=== PATIENT | male | born 1950 | race Caucasian/White ===

== ENCOUNTER 2023-02-03 14:39 | Outpatient (OUT) | payer MEDICARE, SELFPAY ==
[2023-02-03 15:37] LABS: Prostate Specific Antigen Dx <0.13 ng/mL (<=4.00)
--- OUTSIDE RECORDS SUMMARY | 2023-03-16 15:51 | XMS_ITS | CCD ---
Author Name Unknown Address [address] [place] [address] Organization [facility] Care Team Providers Care Helmet Coverer Name Role Phone NINO VALENTIN Primary Care Physician [phone] COMPA CAZARES, DR ATILIO Bermudez Attending Unavailhardy READ JR, DR ATILIO Bermudez Consulting Unavailhardy READ JR, DR ATILIO Bermudez Admitting UnavailNINO Perez Primary Care Unavailable Roxanne Haddad Attending Unavailable JUDITH NORTON Attending Unavailable JUDITH NORTON Attending Unavailable JUDITH NORTON Admitting Unavailable DENIZ FINNEY Attending Unavailable DAHLIA VALENTIN Referring Unavailable DAHLIA VALENTIN Referring Unavailable DAHLIA VALENTIN Attending Unavailable DO Deniz Finney Attending Provider DO Nino Valentin Primary Care Provider Nino Valentin DO Primary Care Provid er Deniz Finney DO Unavailable DEVIN GONZALEZ Attending Unavailable NINO VALENTIN Primary Care DEVIN Ordaz Referring Unavailable Nino Valentin DO Primary Care Provid er Dahlia Valentin Unavailable NINO VALENTIN Referring NINO Sabillon Primary Care ALEX Matt Attending Unavailable NINO VALENTIN Primary Care Cornel Ramirez Admitting Unavailable Cornel Chowdary Attending Unavailable Nino Valentin [facility] Care Unavailable Nino Valentin Primary Care Unavailable Deniz Finney Admitting Unavailable Deniz Finney Attending Unavailable Darryl Escalera Admitting Unavail able Darryl Escalera Attending Unavail able Nino Valentin Primary Care Unavailable Allergies Allergy Classification Reported Allergen(s) Allergy Type Date of Onset Reaction(s) Facility (2 sources) Amoxicillin; Translations: [amoxicillin] Drug Allergy 3 [facility] (2 sources) Clavulanate; Translations: [clavulanic acid] Drug Allergy 3 [facility] (3 sources) meloxicam; Translations: [MELOXICAM] Drug Allergy 2 Rash, Other: See Comments [facility] (2 sources) traMADol; Translations: [TRAMADOL] Drug Allergy 3 [facility] Work Phone: Medications Current Medications Medication Drug Class(es) Dates Sig (Normalized) Sig (Original) aspirin 81 mg chewable tablet (3 sources) Platelet Aggregation Inhibitor, Nonsteroidal Anti-inflammatory Drug Start: 02-26-2023 take 1 tablet by mouth once daily Aspirin (Baby Aspirin) 81 mg Tablet,Chewable Active 81 MG PO Daily February 26, 2023 12:00am aspirin, enteric coated (ASPIRIN, ENTERIC COATED) 81 mg EC tablet Take 81 mg by mouth. 0 Active Comment on above: Take 81 mg by mouth. glipiZIDE 5 mg oral tablet (7 sources) Sulfonylurea Start: 01-08-2023 take 5 mg by mouth once daily at bedtime Glipizide Active 5 MG PO Daily at bedtime February 26, 2023 12:00am Start: 10-25-2018 take 1 tablet by keri th once daily glipiZIDE 10 mg Tab 10 mg = 1 tab(s), Oral, Daily Start Date: 10/25/18 Status: Ordered Comment on above: Take 1 tablet by keri th every afternoon. Insulin Degludec (Tresiba Flextouch U-100) 100 unit/mL (3 mL) insulin pen (1 source) Start: 02-26-2023 Insulin Deglud ec (Tresiba Flextouch U-100) 100 unit/mL (3 mL) insulin pen Active 20 UNIT SUBCUT Every morning February 26, 2023 12:00am metFORMIN hydrochloride 1000 mg oral tablet (7 sources) Biguanide Start: 01-25-2023 take 1000 mg by mouth twice daily Metformin Active 1000 MG PO Twice daily February 26, 2023 12:00am Start: 12-28-2022 take 1 tablet by keri th every twelve hours metFORMIN (GLUCOPHAGE) 1,000 mg tablet Take 1 tablet by mouth every 12 hours. 0 12/28/2022 Active Start: 10-25-2018 take 2 tablets by mo uth twice daily metformin 500 mg Tab 1,000 mg = 2 tab(s), Oral, BID Start Date: 10/25/18 Status: Ordered Comment on above: Take 1 tablet by keri th every 12 hours. Multivitamin preparation (1 source) Start: 02-26-2023 take 1 tablet by mouth once daily Multivitamin Active 1 TAB PO Daily February 26, 2023 12:00am multivitamin with minerals tablet (1 source) take 1 tablet by mouth once daily multivitamin with minerals tablet Take 1 tablet by mouth once daily. 0 Active triamcinolone acetonide 1 mg/ml topical cream (2 sources) Corticosteroid Start: 02-09-2023 Triamcinolone Acetonide Active 1 APPLIC TOPICAL Twice daily February 26, 2023 12:00am Completed/Discontinued Medications Medication Drug Class(es) Dates Sig (Normalized) Sig (Original) atorvastatin 20 mg oral tablet (4 sources) HMG-CoA Reductase Inhibitor Start: 01-08-2023 End: 01-08-2024 take 1 tablet by mouth in the morning atorvastatin (LIPITOR) 20 mg tablet Take 1 tablet (20 mg) by mouth in the morning. 0 01/08/2023 Active Start: 10-24-2019 take 1 tablet by keri th once daily atorvastatin 20 mg Tab 20 mg = 1 tab(s), Oral, Daily, # 30 tab(s), Refills(s) 0 Start Date: 10/24/19 Status: Ordered Comment on above: Take 1 tablet (20 mg ) by mouth in the morning. empagliflozin 10 mg oral tablet (4 sources) Sodium-Glucose Cotransporter 2 Inhibitor Start: 01-25-2023 empagliflozin (JARDIANCE) 10 mg tablet Take 10 mg by mouth. 0 01/25/2023 Active Start: 10-25-2018 Jardiance 25 m g oral tablet 12.5 mg = 0.5 tab(s), Oral, qAM Start Date: 10/25/18 Status: Ordered Comment on above: Take 10 mg by mouth. 3 ml insulin degludec 100 unt/ml pen injector (2 sources) Insulin Analog Start: 02-09-2023 inject 20 [IU] by subcutaneous injection in the morning TRESIBA FLEXTOUCH U-100 100 unit/mL (3 mL) injection pen INJECT 20 UNITS SUBCUTANEOUSLY IN THE MORNING 0 02/09/2023 Active Start: 02-09-2023 insulin deglud ec (Tresiba FlexTouch U-100) 100 unit/mL (3 mL) injection Inject 20 Units under the skin once daily. 0 02/09/2023 Active Comment on above: INJECT 20 UNITS SUBC UTANEOUSLY IN THE MORNING therapeutic multivitamin-min erals (THERA-M PLUS) 9 mg iron-400 mcg tablet (1 source) therapeutic mult ivitamin-minerals (THERA-M PLUS) 9 mg iron-400 mcg tablet Take 1 tablet by mouth once daily. 0 Active Comment on above: Take 1 tablet by keri th once daily. Problems Active Problems Problem Classification Problem Date Documented Date Episodic/Chronic Abdominal pain (8 sources) Abdominal pain; Translations: [Abdominal tenderness] 11-30-2019 Episodic Cancer of prostate (14 sources) History of malignant neoplasm of prostate; Translations: [Personal history of malignant neoplasm of prostate] Onset: 2 10-24-2019 Episodic Conduction disorders (5 sources) Complete atrioventricular block; Translations: [Atrioventricular block, complete] Onset: 3 03-04-2023 Chronic Coronary atherosclerosis and other heart disease (8 sources) Preinfarction syndrome; Translations: [Unstable angina] Onset: 3 03-04-2023 Chronic Diabetes mellitus with complications (4 sources) Type 2 diabetes mellitus; Translations: [Type 2 diabetes mellitus with other circulatory complications] Onset: 3 03-04-2023 Chronic Diabetes mellitus without complication (5 sources) Diabetes mellitus; Translations: [Type 2 diabetes mellitus without complications] Onset: 3 10-25-2018 Chronic Diseases of white blood cells (2 sources) Lymphocytosis; Translations: [Lymphocytosis (symptomatic)] Onset: 3 03-08-2023 Chronic Disorders of lipid metabolism (5 sources) Mixed hyperlipidemia; Translations: [Mixed hyperlipidemia] Onset: 6 03-04-2023 Chronic Genitourinary symptoms and ill-defined conditions (5 sources) Incontinence without sensory awareness; Translations: [Incontinence without sensory awareness] Onset: 2 12-31-2020 Chronic Genitourinary symptoms and ill-defined conditions (17 sources) Increased frequency of urination; Translations: [Nocturia] Onset: 2 09-14-2018 Episodic Leukemias (1 source) Chronic lymphoid leukemia, disease; Translations: [Chronic lymphocytic leukemia of B-cell type not having achieved remission] 03-08-2023 Chronic Lymphadenitis (4 sources) Localized enlarged lymph nodes; Translations: [Localized enlarged lymph nodes] Onset: 3 Episodic Malaise and fatigue (4 sources) Fatigue; Translations: [Other fatigue] Onset: 3 03-04-2023 Episodic Nonspecific chest pain (2 sources) Chest discomfort; Translations: [Other chest pain] Onset: 3 Resolved: 3 03-04-2023 Episodic Other diseases of bladder and urethra (6 sources) Traumatic membranous urethral stricture; 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] Onset: 2 11-30-2019 Episodic Other male genital disorders (4 sources) Erectile dysfunction following radical prostatectomy 10-25-2018 Chronic Other nutritional; endocrine; and metabolic disorders (2 sources) Obesity; Translations: [Obesity, unspecified] Onset: 3 03-04-2023 Chronic Other nutritional; endocrine; and metabolic disorders (2 sources) Obesity, unspecified; Translations: [Obesity, unspecified] Onset: 3 Chronic Other nutritional; endocrine; and metabolic disorders (2 sources) Body mass index (BMI) 30.0-30.9, adult; Translations: [Body mass index (BMI) 30.0-30.9, adult] Onset: 3 Chronic Other screening for suspected conditions (not mental disorders or infectious disease) (4 sources) Electrocardiogram abnormal; Translations: [Abnormal electrocardiogram [ECG] [EKG]] Onset: 3 03-04-2023 Episodic Unclassified (1 source) Encounter for preprocedural laboratory examination; Translations: [Encounter for preprocedural laboratory examination] Onset: 3 Past or Other Problems Problem Classification Problem Date Documented Da te Episodic/Chronic Cardiac dysrhythmias (1 source) Sick sinus syndrome; Translations: [Sick sinus syndrome] Onset: 03-04-2023 Resolved: 03-04-2023 03-04-2023 Chronic Other non-traumatic joint disorders (4 sources) Swelling of knee joint Resolved: 09-14-2018 09-14-2018 Episodic Unclassified (1 source) Onset: 03-04-2023 03-04-2023 Results Test Name Value Interpretation Reference Range Facil ity XR chest 2V*on 03-12-2023 XR chest 2V* [facility] [place] [address] [place] [address] XRay Report Signed Patient: Malik Ladd MR#: [id number] : 1950 Acct:[id number] Age/Sex: 72 / M ADM Date: 03/11/23 Loc: Room: [address] [place] [address] Type: [facility] Attending Dr: Darryl Escalera MD Copies to: Darryl Escalera MD Ordering Provider: Darryl Escalera MD Date of Service: 03/12/23 XR/XR chest 2V*: Rule out pneumothorax on only new implants cases in am Chest 2 views CLINICAL HISTORY: Post pacemaker. COMPARISON: Chest 03/11/2023 FINDINGS: Dual-lead pacemaker device without radiographic complication. Heart appears normal in size. Lungs are clear. No pneumothorax. No free air. XR/XR chest 2V* IMPRESSION: NO ACUTE FINDINGS. Impression dictated by: Fly Diaz Jr., D.OAlannah03/12/2023 8:23 AM Dictation Location: [place] [address] Transcribed By: [facility] 03/12/23822 Dictated By: Fly Diaz Jr, DO 03/12/23821 Signed By: 03/12/23822 Normal [facility] Basic Metabolic Panelon 02-26 Anion gap [Moles/Vol] 12.1 mmol/L Normal 6.0-15.0 [facility] Comment on above: Performed By: #### P TT, PT, BMP, SCAN CBC #### [facility] [address] [place] [address] [place] Calcium [Mass/Vol] 8.6 mg/dL Normal 8.6-10.3 [facility] Comment on above: Performed By: #### P TT, PT, BMP, SCAN CBC #### [facility] [address] [place] [address] [place] Chloride [Moles/Vol] 106 mmol/L Normal 98-107 [facility] Comment on above: Performed By: #### P TT, PT, BMP, SCAN CBC #### [facility] [address] [place] [address] [place] CO2 [Moles/Vol] 24.3 mmol/L Normal 21.0-31.0 [facility] Comment on above: Performed By: #### P TT, PT, BMP, SCAN CBC #### [facility] [address] [place] [address] [place] Creatinine [Mass/Vol] 0.72 mg/dL Normal 0.70-1.30 [facility] Comment on above: Performed By: #### P TT, PT, BMP, SCAN CBC #### [facility] [address] [place] [address] [place] Creatinine Clr Calc Pharmacy 96.67 [facility] Comment on above: Result Comment: PERF ORMED BY: [place] [address] PATHOLOGIST PEDAL ASSEMBLER ZEV PARRA M.D. Performed By: #### P TT, PT, BMP, SCAN CBC #### [facility] [address] [place] [address] [place] GFR/1.73 sq M.predicted MDRD (S/P/Bld) [Vol rate/Area] mL/min/{1.73_m2} [facility] Comment on above: Performed By: #### P TT, PT, BMP, SCAN CBC #### [facility] [address] [place] [address] [place] Glucose [Mass/Vol] 278 mg/dL High 70-100 [facility] Comment on above: Result Comment: [place] om Glucose Reference Range is dependent on time and content of last meal. Glucose of more than 200 mg/dL in a nonstressed, ambulatory subject supports the diagnosis of Diabetes Mellitus. ADA recommended reference range Performed By: #### P TT, PT, BMP, SCAN CBC #### [facility] [address] Potassium [Moles/Vol] 4.4 mmol/L Normal 3.5-5.1 [facility] Comment on above: Performed By: #### P TT, PT, BMP, SCAN CBC #### [facility] [address] Sodium [Moles/Vol] 138 mmol/L Normal 136-145 [facility] Comment on above: Performed By: #### P TT, PT, BMP, SCAN CBC #### [facility] [address] Urea nitrogen [Mass/Vol] 25 mg/dL Normal 7-25 [facility] Comment on above: Performed By: #### P TT, PT, BMP, SCAN CBC #### [facility] [address] ECG 12 lead ECG 03-11-2023 ECG 12 lead ECG [facility] [place] [address] [place] [address] Electrocardiograph Report Signed Patient: Malik Ladd MR#: [id number] : 1950 Acct:[id number] Age/Sex: 72 / M ADM Date: 03/11/23 Loc: Room: [address] [place] [address] Type: REG [facility] Attending Dr: Darryl Escalera MD Ordering Provider: Darryl Escalera MD Date of Service: 03/11/23 ECG/ECG 12 lead ECG: pre-op Copies to: Test Reason : Blood Pressure : / mmHG Vent. Rate : 054 BPM Atrial Rate : 054 BPM P-R Int : 528 ms QRS Dur : 080 ms QT Int : 438 ms P-R-T Axes : 080 021 060 degrees QTc Int : 415 ms Sinus bradycardia with marked sinus arrhythmia with 1st degree AV block Otherwise normal ECG When compared with ECG of 08-MAR-2023 11:04, No significant change was found Confirmed by EVERTON HONG MD ([id number]) on 03/11/2023 9:45:13 PM Referred By: Electronically Signed By:EVERTON HONG MD Transcribed By: MUS Signed By Everton Hong MD 3226 Normal [facility] Glucose Poct Glucometerson 1 05-12-2022 Glucose [Mass/Vol] 188 mg/dL Normal [facility] Comment on above: Result Comment: [place] om Glucose Reference Range is dependent on time and content of last meal. Glucose of more than 200 mg/dL in a nonstressed, ambulatory subject supports the diagnosis of Diabetes Mellitus. PERFORMED BY: [address] [address] PATHOLOGIST PEDAL ASSEMBLER ZEV PARRA M.D. Performed By: #### G LULS ####Point of Care testing, Glucose [Mass/Vol] 242 mg/dL Normal [facility] Comment on above: Result Comment: [facility] Glucose Reference Range is dependent on time and content of last meal. Glucose of more than 200 mg/dL in a nonstressed, ambulatory subject supports the diagnosis of Diabetes Mellitus. PERFORMED BY: [address] [address] PATHOLOGIST PEDAL ASSEMBLER ZEV PARRA M.D. Performed By: #### G LULS ####Point of Care testing, Commemt1 Glu2: Cleaned Meter Normal [facility] Comment on above: Result Comment: PERF ORMED BY: [facility] [address] [place] [address] PATHOLOGIST PEDAL ASSEMBLER ZEV PARRA M.D. Performed By: #### G LULS #### Point of Care testing , Glucose [Mass/Vol] 272 mg/dL Normal [facility] Comment on above: Result Comment: [facility] Glucose Reference Range is dependent on time and content of last meal. Glucose of more than 200 mg/dL in a nonstressed, ambulatory subject supports the diagnosis of Diabetes Mellitus. Performed By: #### G LULS #### Point of Care testing , Partial Thromboplastin Timeo n 03-11-2023 aPTT Coag (Bld) [Time] 27.1 s Normal 25.1-36.5 [facility] Comment on above: Result Comment: A he matocrit value greater than 55% may lead to inaccurate results in coagulation testing. Patients having hematocrit values >55% require a special collection tube for coagulation studies. Please contact the laboratory at [phone] for redraw instructions. PERFORMED BY: [place] [address] PATHOLOGIST PEDAL ASSEMBLER ZEV PARRA M.D. Performed By: #### P TT, PT, BMP, SCAN CBC #### [address] Prothrombin Time INRon 03-11 INR Coag (PPP) [Relative time] 1.1 {INR} Normal [facility] Comment on above: Result Comment: INR Therapeutic Range A) Pre- and Peroperative OAT started two weeks before surgery. NOT HIP SURGERY: 1.5 - 2.5 HIP SURGERY: 2 - 3 B) Primary and secondary prevention of venous THROMBOSIS: 2 - 3 C) Active venous thrombosis, pulmonary embolism and prevention of recurrent venous thrombosis: 2 - 3 D) Prevention of arterial thromboembolism including patients with mechanical heart valves: 3 - 4.5 Performed By: #### P TT, PT, BMP, SCAN CBC #### [address] PT Coag (PPP) [Time] 13.7 s High 9.0-12.9 [facility] Comment on above: Result Comment: A he matocrit value greater than 55% may lead to inaccurate results in coagulation testing. Patients having hematocrit values >55% require a special collection tube for coagulation studies. Please contact the laboratory at [phone] for redraw instructions. Performed By: #### P TT, PT, BMP, SCAN CBC #### [facility] [address] [place] [address] Scan and CBCon 03-11-2023 Basophils (Bld) [#/Vol] 0.1 10*3/uL Normal 0.0-0.2 [facility] Comment on above: Performed By: #### P TT, PT, BMP, SCAN CBC #### [facility] [address] [place] [address] Basophils/100 WBC (Bld) 0.3 % Normal . [facility] Comment on above: Performed By: #### P TT, PT, BMP, SCAN CBC #### [facility] [address] [place] [address] Eosinophils (Bld) [#/Vol] 0.1 10*3/uL Normal 0.0-0.45 [facility] Comment on above: Performed By: #### P TT, PT, BMP, SCAN CBC #### [address] Eosinophils/100 WBC (Bld) 0.6 % Normal . [facility] Comment on above: Performed By: #### P TT, PT, BMP, SCAN CBC #### [address] Erythrocyte distribution wid th (RBC) [Ratio] 14.8 % Normal 12.0-14.8 [facility] Comment on above: Performed By: #### P TT, PT, BMP, SCAN CBC #### [address] Hematocrit (Bld) [Volume fraction] 36.5 % Low 38.8-50.0 [facility] Comment on above: Performed By: #### P TT, PT, BMP, SCAN CBC #### [address] Hemoglobin (Bld) [Mass/Vol] 11.9 g/dL Low 13.0-17. 0 [facility] Comment on above: Performed By: #### P TT, PT, BMP, SCAN CBC #### [address] Lymphocytes (Bld) [#/Vol] 14.6 10*3/uL High 1.00-4.8 [facility] Comment on above: Performed By: #### P TT, PT, BMP, SCAN CBC #### [facility] [address] [place] [address] [place] Lymphocytes/100 WBC (Bld) 70.2 % Normal . [facility] Comment on above: Performed By: #### P TT, PT, BMP, SCAN CBC #### [facility] [address] MCH (RBC) [Entitic mass] 30.8 pg Normal 27.5-35.2 [facility] Comment on above: Performed By: #### P TT, PT, BMP, SCAN CBC #### [facility] [address] MCV (RBC) [Entitic vol] 94.1 fL Normal 83.5-101 [facility] Comment on above: Performed By: #### P TT, PT, BMP, SCAN CBC #### [address] Mean Corpuscular HGB Conc 32.7 g/dL Normal 32.5-35.6 [facility] Comment on above: Performed By: #### P TT, PT, BMP, SCAN CBC #### [facility] [address] [place] [address] [place] Monocytes (Bld) [#/Vol] 0.4 10*3/uL Normal 0.0-0.8 [facility] Comment on above: Performed By: #### P TT, PT, BMP, SCAN CBC #### [facility] [address] [place] [address] [place] Monocytes/100 WBC (Bld) 2.2 % Normal . [facility] Comment on above: Performed By: #### P TT, PT, BMP, SCAN CBC #### [facility] [address] [place] [address] [place] Neutrophils (Bld) [#/Vol] 5.6 10*3/uL Normal 1.8-7.7 [facility] Comment on above: Performed By: #### P TT, PT, BMP, SCAN CBC #### [facility] [address] [place] [address] [place] Neutrophils/100 WBC (Bld) 26.7 % Normal . [facility] Comment on above: Performed By: #### P TT, PT, BMP, SCAN CBC #### [facility] [address] NRBC% 0.4 /100{WBC} Normal 0-0.5 [facility] Comment on above: Performed By: #### P TT, PT, BMP, SCAN CBC #### [address] Ovalocytes Slight Normal [facility] Comment on above: Performed By: #### P TT, PT, BMP, SCAN CBC #### [address] Platelet Estimate Normal Normal Normal [facility] Comment on above: Performed By: #### P TT, PT, BMP, SCAN CBC #### [address] Platelet mean volume (Bld) [Entitic vol] 8.2 fL Normal 6.6-10.1 [facility] Comment on above: Performed By: #### P TT, PT, BMP, SCAN CBC #### [address] Platelet Morphology Normal Normal Normal [facility] Comment on above: Result Comment: PERF ORMED BY: [place] [address] PATHOLOGIST PEDAL ASSEMBLER ZEV PARRA M.D. Performed By: #### P TT, PT, BMP, SCAN CBC #### [address] Platelets (Bld) [#/Vol] 178 10*3/uL Normal 150-450 [facility] Comment on above: Performed By: #### P TT, PT, BMP, SCAN CBC #### [address] Poikilocytosis Slight Normal [facility] Comment on above: Performed By: #### P TT, PT, BMP, SCAN CBC #### [address] RBC (Bld) [#/Vol] 3.87 10*6/uL Low 3.90-5.60 [facility] Comment on above: Performed By: #### P TT, PT, BMP, SCAN CBC #### [facility] [address] WBC (Bld) [#/Vol] 20.8 10*3/uL High 4.1-10.5 [facility] Comment on above: Performed By: #### P TT, PT, BMP, SCAN CBC #### [facility] [address] [place] [address] [place] XR chest 1V portableon 03-11 XR chest 1V portable [facility] [place] [address] [place] [address] XRay Report Signed Patient: Malik Ladd MR#: [id number] : 1950 Acct:[id number] Age/Sex: 72 / M ADM Date: 03/11/23 Loc: [place] Room: Type: [facility] Attending Dr: Darryl Escalera MD Copies to: Darryl Escalera MD Ordering Provider: Darryl Escalera MD Date of Service: 03/11/23 XR/XR chest 1V portable: POST PACER XR chest 1V portable 03/11/2023 1:25 PM SIGNS AND SYMPTOMS: POST PACER PROTOCOL: Frontal radiograph of the chest COMPARISON: 03/11/2023 FINDINGS: The trachea is midline. There is a dual lead pacer device on the left which is new. The leads are intact and in satisfactory position. There is no pneumothorax. The heart and mediastinal structures are within normal limits. The lung parenchyma is clear. The bony thorax is intact. Degenerative changes are noted in the shoulders XR/XR chest 1V portable IMPRESSION: There is a dual lead pacer device on the left which is new. The leads are intact and in satisfactory position. There is no pneumothorax. Impression dictated by: Balaji Acharya M.D.03/11/2023 1:49 PM Dictation Location: [place] [address] Transcribed By: SHAMEKA 03/11/23 134 Dictated By: Balaji Acharya II, MD 03/11/23 1347 Signed By: 03/11/23 1349 [facility] XR chest 2V*on 03-11-2023 XR chest 2V* [facility] [place] [address] [place] [address] XRay Report Signed Patient: Malik Ladd MR#: [id number] : 1950 Acct:[id number] Age/Sex: 72 / M ADM Date: 03/11/23 Loc: [place] Room: Type: [facility] Attending Dr: Darryl sEcalera MD Copies to: Darryl Escalera MD Ordering Provider: Darryl Escalera MD Date of Service: 03/11/23 XR/XR chest 2V*: pre-op Plain film chest 2 view HISTORY: Preop assessment for pacemaker insertion COMPARISON: None FINDINGS: SUPPORT DEVICES: None POSTSURGICAL CHANGES: None HEART: Within normal limits PULMONARY HUGH: Within normal limits MEDIASTINUM: Unremarkable LUNGS AND PLEURA: No acute lung process, pleural effusion or pneumothorax identified. BONY STRUCTURES: Thoracic hyperostosis ADDITIONAL FINDINGS None XR/XR chest 2V* IMPRESSION: No acute process. Impression dictated by: Juwan Elias M.D.03/11/2023 11:10 AM Dictation Location: [place] [address] Transcribed By: [facility] 03/11/23 1110 Dictated By: Juwan Elias DO 03/11/23 1109 Signed By: 03/11/23 1110 [facility] Blood Urea Nitrogenon 2022 Urea nitrogen [Mass/Vol] 16 mg/dL Normal 7-25 [facility] Comment on above: Performed By: #### L IPID, CREAT, SCAN CBC, PP, BUN, LYTES ####[facility] [id number] [place] [id number] 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 I do not believe a lymph node biopsy is necessary at this time. If in agreement please arrange for PET scan and CLL FISH analysis to be done at [facility] prior to his return visit. ThanksSudhir Natalie, RN 03/08/2023 2:48 PM Signed VM left with [facility] message and recommendations. Pt asked to call back to schedule. [facility]: Orders pended; please review and sign COLLEEN Wright Holly, APRN.CNP 03/08/2023 3:10 PM Signed Signed. Fabiola Elliott APRN.Marina Mar 03/09/2023 10:31 AM Signed This patient is scheduled for his PET scan on Wednesday, 03/19 (this was our next available) in [place]. I cancelled his appointment with [facility] on 03/18 per patient's request. He would like to wait until after the PET scan to go over results with Dr. Barajas. He is scheduled for his follow up with Dr. Barajas on 03/30 at 1:15pm. Patient is informed and in agreement with all appointments. ThanksMarina Allergies As of Date: 03/08/2023 Noted Allergy Reaction MELOXICAM 11/20/2021 14 - Other: See Comments Date Reviewed: 03/08/2023 Reviewed by: Fabiola Elliott APRN.AMBAR - Fully Assessed Reason for Visit: Results [95] Orders [681] Primary Visit Diagnosis:Lymphocytosis [D72.820] Other Visit Diagnosis:CLL (chronic lymphocytic leukemia) ([facility]) [C91.10] Order(s):NM PET/CT SKULL-THIGH INITIAL [[id number]] Order #: [id number] FUTURE FISH FOR CLL [SQCLLFSH] Order #: [id number] FUTURE Prescriptions as of 03/09/2023 - empagliflozin (JARDIANCE) 10 mg tablet Take 10 mg by mouth. - glipiZIDE (GLUCOTROL) 5 mg tablet Take 1 tablet by mouth every afternoon. - atorvastatin (LIPITOR) 20 mg tablet Take 1 tablet (20 mg) by mouth in the morning. - metFORMIN (GLUCOPHAGE) 1,000 mg tablet Take 1 tablet by mouth every 12 hours. - therapeutic multivitamin-minerals (THERA-M PLUS) 9 mg iron-400 mcg tablet Take 1 tablet by mouth once daily. - TRESIBA FLEXTOUCH U-100 100 unit/mL (3 mL) injection pen INJECT 20 UNITS SUBCUTANEOUSLY IN THE MORNING - aspirin, enteric coated (ASPIRIN, ENTERIC COATED) 81 mg EC tablet Take 81 mg by mouth. Problem List As Of Date: 03/08/2023 (None) Encounter Status:Closed by CHANDRIKA ROOT on 03/08/23 Normal [facility] Coagulation Profileon 2022 aPTT Coag (Bld) [Time] 27.3 s Normal 25.1-36.5 [facility] Comment on above: Result Comment: A he matocrit value greater than 55% may lead to inaccurate results in coagulation testing. Patients having hematocrit values >55% require a special collection tube for coagulation studies. Please contact the laboratory at [phone] for redraw instructions. PERFORMED BY: [facility] [address] [place] [address] PATHOLOGIST PEDAL ASSEMBLER ZEV PARRA M.D. Performed By: #### L IPID, CREAT, SCAN CBC, PP, BUN, LYTES ####[facility] [address] [place] [address] [facility] INR Coag (PPP) [Relative time] 1.3 {INR} Normal [facility] Comment on above: Result Comment: INR Therapeutic Range A) Pre- and Peroperative OAT started two weeks before surgery. NOT HIP SURGERY: 1.5 - 2.5 HIP SURGERY: 2 - 3 B) Primary and secondary prevention of venous THROMBOSIS: 2 - 3 C) Active venous thrombosis, pulmonary embolism and prevention of recurrent venous thrombosis: 2 - 3 D) Prevention of arterial thromboembolism including patients with mechanical heart valves: 3 - 4.5 Performed By: #### L IPID, CREAT, SCAN CBC, PP, BUN, LYTES ####[place] [address] [place] [address] [facility] PT Coag (PPP) [Time] 14.9 s High 9.0-12.9 [facility] Comment on above: Result Comment: A he matocrit value greater than 55% may lead to inaccurate results in coagulation testing. Patients having hematocrit values >55% require a special collection tube for coagulation studies. Please contact the laboratory at [phone] for redraw instructions. Performed By: #### L IPID, CREAT, SCAN CBC, PP, BUN, LYTES ####[place] [id number] [facility] Creatinineon 03-08-2023 Creatinine [Mass/Vol] 0.75 mg/dL Normal 0.70-1.30 [facility] Comment on above: Performed By: #### L IPID, CREAT, SCAN CBC, PP, BUN, LYTES ####[address] Creatinine [facility]r [facility] 97.51 [facility] Comment on above: Performed By: #### L IPID, CREAT, SCAN CBC, PP, BUN, LYTES ####[place] [id number] [facility] GFR/1.73 sq M.predicted MDRD (S/P/Bld) [Vol rate/Area] mL/min/{1.73_m2} [facility] Comment on above: Performed By: #### L IPID, CREAT, SCAN CBC, PP, BUN, LYTES ####[place] [id number] [facility] ECG 12 lead ECGon 03-08-2023 ECG 12 lead ECG [facility] [address] [place] [address] Electrocardiograph Report Signed Patient: Malik Ladd MR#: [id number] : 1950 Acct:[id number] Age/Sex: 72 / M ADM Date: 03/08/23 Loc: Room: Type: [facility] Attending Dr: Cornel Chowdary DO Ordering Provider: Cornel Chowdary DO Date of Service: 03/08/2302/18/1046 ECG/ECG 12 lead ECG: [facility] Copies to: Test Reason : Blood Pressure : / mmHG Vent. Rate : 053 BPM Atrial Rate : 053 BPM P-R Int : 496 ms QRS Dur : 080 ms QT Int : 442 ms P-R-T Axes : 050 004 062 degrees QTc Int : 414 ms Sinus bradycardia with 1st degree AV block Low voltage QRS Cannot rule out Anterior infarct (cited on or before 26-FEB-2023) Abnormal ECG When compared with ECG of 26-FEB-2023 12:15, Sinus rhythm has replaced Junctional rhythm otherwise, unchanged Confirmed by EVERTON HONG MD ([id number]) on 03/08/2023 9:42:53 PM Referred By: Electronically Signed By:EVERTON HONG MD Transcribed By: MUS Signed By Everton Hong MD 2141 Normal [facility] Electrolyteson 03-08-2023 Anion gap [Moles/Vol] 11.6 mmol/L Normal 6.0-15.0 [facility] Comment on above: Performed By: #### L IPID, CREAT, SCAN CBC, PP, BUN, LYTES ####[facility] [id number] [place] [address] [facility] Chloride [Moles/Vol] 103 mmol/L Normal 98-107 [facility] Comment on above: Performed By: #### L IPID, CREAT, SCAN CBC, PP, BUN, LYTES ####[facility] [id number] [place] [address] [facility] CO2 [Moles/Vol] 28.0 mmol/L Normal 21.0-31.0 [facility] Comment on above: Performed By: #### L IPID, CREAT, SCAN CBC, PP, BUN, LYTES ####[place] [address] [place] [address] [facility] Potassium [Moles/Vol] 4.6 mmol/L Normal 3.5-5.1 [facility] Comment on above: Performed By: #### L IPID, CREAT, SCAN CBC, PP, BUN, LYTES ####[place] [address] [place] [address] [facility] Sodium [Moles/Vol] 138 mmol/L Normal 136-145 [facility] Comment on above: Performed By: #### L IPID, CREAT, SCAN CBC, PP, BUN, LYTES ####[place] [address] [place] [address] [facility] Lipid Panelon 03-08-2023 Cholesterol [Mass/Vol] 116 mg/dL Low 140-200 [facility] Comment on above: Result Comment: Chol less than 200 mg/dl low risk Chol 201-239 mg/dl borderline risk Chol 240 mg/dl and greater high risk Performed By: #### L IPID, CREAT, SCAN CBC, PP, BUN, LYTES ####[address] [facility] Cholesterol in HDL [Mass/Vol] 46 mg/dL Normal 23-92 [facility] Comment on above: Result Comment: HDL CHOL ATP-III CLASSIFICATION Cardiovascular Risk HDL > or equal to 60 mg/dL LOW HDL < 40 mg/dL HIGH Performed By: #### L IPID, CREAT, SCAN CBC, PP, BUN, LYTES ####[place] [id number] [facility] Cholesterol.total/Cholestero l in HDL [Mass ratio] 2.5 {ratio} Normal <5.0 [facility] Comment on above: Result Comment: PERF ORMED BY: [facility] [address] [place] [id number] PATHOLOGIST PEDAL ASSEMBLER ZEV PARRA M.D. Performed By: #### L IPID, CREAT, SCAN CBC, PP, BUN, LYTES ####[place] [id number] [facility] LDL Cholesterol,Calculated 56 mg/dL Normal 0-100 [facility] Comment on above: Result Comment: LDL ATP III CLASSIFICATION LDL less than 100 mg/dL Optimal LDL 100-129 mg/dL Near or above optimal LDL 130-159 mg/dL Borderline high LDL 160-189 mg/dL High LDL greater than 189 mg/dL Very high Performed By: #### L IPID, CREAT, SCAN CBC, PP, BUN, LYTES ####[address] Triglyceride w/Reflex 69 mg/dL Normal 0-149 [facility] Comment on above: Result Comment: TRIG ATP III CLASSIFICATION TRIG less than 150 mg/dL Normal TRIG 150-199 mg/dL Borderline high TRIG 200-500 mg/dL High TRIG greater than 500 mg/dL Very high Standard traceable to the Center for Disease Conrtrol and Prevention (CDC) test method. Performed By: #### L IPID, CREAT, SCAN CBC, PP, BUN, LYTES ####[address] VLDL CHOLESTEROL 13 mg/dL Normal [facility] Comment on above: Performed By: #### L IPID, CREAT, SCAN CBC, PP, BUN, LYTES ####[address] Scan and CBCon 03-08-2023 Anisocytosis Ql (Bld) Slight Normal [facility] Comment on above: Performed By: #### L IPID, CREAT, SCAN CBC, PP, BUN, LYTES ####[address] Basophils (Bld) [#/Vol] 0.1 10*3/uL Normal 0.0-0.2 [facility] Comment on above: Performed By: #### L IPID, CREAT, SCAN CBC, PP, BUN, LYTES ####[address] Basophils/100 WBC (Bld) 0.3 % Normal . [facility] Comment on above: Performed By: #### L IPID, CREAT, SCAN CBC, PP, BUN, LYTES ####[address] Eosinophils (Bld) [#/Vol] 0.1 10*3/uL Normal 0.0-0.45 [facility] Comment on above: Performed By: #### L IPID, CREAT, SCAN CBC, PP, BUN, LYTES ####[address] Eosinophils/100 WBC (Bld) 0.8 % Normal . [facility] Comment on above: Performed By: #### L IPID, CREAT, SCAN CBC, PP, BUN, LYTES ####[address] Erythrocyte distribution wid th (RBC) [Ratio] 14.3 % Normal 12.0-14.8 [facility] Comment on above: Performed By: #### L IPID, CREAT, SCAN CBC, PP, BUN, LYTES ####[address] Hematocrit (Bld) [Volume fraction] 36.8 % Low 38.8-50.0 [facility] Comment on above: Performed By: #### L IPID, CREAT, SCAN CBC, PP, BUN, LYTES ####[address] Hemoglobin (Bld) [Mass/Vol] 12.1 g/dL Low 13.0-17. 0 [facility] Comment on above: Performed By: #### L IPID, CREAT, SCAN CBC, PP, BUN, LYTES ####[address] Lymphocytes (Bld) [#/Vol] 14.3 10*3/uL High 1.00-4.8 [facility] Comment on above: Performed By: #### L IPID, CREAT, SCAN CBC, PP, BUN, LYTES ####[address] Lymphocytes/100 WBC (Bld) 77.0 % Normal . [facility] Comment on above: Performed By: #### L IPID, CREAT, SCAN CBC, PP, BUN, LYTES ####[address] MCH (RBC) [Entitic mass] 30.6 pg Normal 27.5-35.2 [facility] Comment on above: Performed By: #### L IPID, CREAT, SCAN CBC, PP, BUN, LYTES ####[address] MCV (RBC) [Entitic vol] 93.2 fL Normal 83.5-101 [facility] Comment on above: Performed By: #### L IPID, CREAT, SCAN CBC, PP, BUN, LYTES ####[address] Mean Corpuscular HGB Conc 32.8 g/dL Normal 32.5-35.6 [facility] Comment on above: Performed By: #### L IPID, CREAT, SCAN CBC, PP, BUN, LYTES ####[address] Microcytosis Slight Normal [facility] Comment on above: Performed By: #### L IPID, CREAT, SCAN CBC, PP, BUN, LYTES ####[address] Monocytes (Bld) [#/Vol] 0.3 10*3/uL Normal 0.0-0.8 [facility] Comment on above: Performed By: #### L IPID, CREAT, SCAN CBC, PP, BUN, LYTES ####[address] Monocytes/100 WBC (Bld) 1.7 % Normal . [facility] Comment on above: Performed By: #### L IPID, CREAT, SCAN CBC, PP, BUN, LYTES ####[address] Neutrophils (Bld) [#/Vol] 3.8 10*3/uL Normal 1.8-7.7 [facility] Comment on above: Performed By: #### L IPID, CREAT, SCAN CBC, PP, BUN, LYTES ####[address] [facility] Neutrophils/100 WBC (Bld) 20.2 % Normal . [facility] Comment on above: Performed By: #### L IPID, CREAT, SCAN CBC, PP, BUN, LYTES ####[address] [facility] NRBC% 0.2 /100{WBC} Normal 0-0.5 [facility] Comment on above: Performed By: #### L IPID, CREAT, SCAN CBC, PP, BUN, LYTES ####[address] [facility] Platelet Estimate Normal Normal Normal [facility] Comment on above: Performed By: #### L IPID, CREAT, SCAN CBC, PP, BUN, LYTES ####[address] [facility] Platelet mean volume (Bld) [Entitic vol] 8.1 fL Normal 6.6-10.1 [facility] Comment on above: Performed By: #### L IPID, CREAT, SCAN CBC, PP, BUN, LYTES ####[address] [facility] Platelet Morphology Normal Normal Normal [facility] Comment on above: Result Comment: PERF ORMED BY: [facility] [address] [place] [address] PATHOLOGIST PEDAL ASSEMBLER ZEV PARRA M.D. Performed By: #### L IPID, CREAT, SCAN CBC, PP, BUN, LYTES ####[address] [facility] Platelets (Bld) [#/Vol] 172 10*3/uL Normal 150-450 [facility] Comment on above: Performed By: #### L IPID, CREAT, SCAN CBC, PP, BUN, LYTES ####[facility] [place] [address] [facility] Poikilocytosis Slight Normal [facility] Comment on above: Performed By: #### L IPID, CREAT, SCAN CBC, PP, BUN, LYTES ####[facility] [place] [address] [facility] RBC (Bld) [#/Vol] 3.94 10*6/uL Normal 3.90-5.60 [facility] Comment on above: Performed By: #### L IPID, CREAT, SCAN CBC, PP, BUN, LYTES ####[place] [address] Smudge Cells Marked Normal [facility] Comment on above: Performed By: #### L IPID, CREAT, SCAN CBC, PP, BUN, LYTES ####[place] [address] WBC (Bld) [#/Vol] 18.6 10*3/uL High 4.1-10.5 [facility] Comment on above: Performed By: #### L IPID, CREAT, SCAN CBC, PP, BUN, LYTES ####[facility] [place] [id number] [facility] CBC W Auto Differential pane l (Bld)on 03-04-2023 Basophils (Bld) [#/Vol] 0.00 10*3/uL Normal <0.11 [facility] Comment on above: Order Comment: Speci men Type: BLOOD SPECIMEN Ordering Facility: [facility] Address: [address] [place] [address] Performed By: #### 1 4196-0 #### [facility] CLIA [id number] [address] [place] [address] #### [id number] #### [facility] CLIA [id number] [address] [facility] [id number] [address] [place] #### 04955-3 #### [facility] CLIA [id number] [address] [place], [place] [address] [facility] CLIA [id number] [address] [place] [address] [place] Basophils/100 WBC (Bld) 0.0 % Normal C [facility] Comment on above: Order Comment: Speci men Type: BLOOD SPECIMEN Ordering Facility: [facility] Address: [address] [place] [address] Performed By: #### 1 4196-0 #### [facility] CLIA [id number] [address] [place] [address] #### [id number] #### [facility] CLIA [id number] [address] [place] [address] [place] #### 75116-2 #### [facility] CLIA [id number] [address] [place] [address] LAB CLIA [id number] [address] [place] [address] [place] Differential cell count method Nom (Bld) Manual Normal [facility] Comment on above: Order Comment: Speci men Type: BLOOD SPECIMEN Ordering Facility: [facility] Address: [address] [place] [address] Performed By: #### 1 4196-0 #### [facility] CLIA [id number] [address] [place] [address] #### [id number] #### [facility] CLIA [id number] [address] [place] [address] [place] #### 13905-1 #### [facility] CLIA [id number] [address] [place] [address] LAB CLIA [id number] [address] [place] [address] [place] Eosinophils (Bld) [#/Vol] 0.22 10*3/uL Normal <0.46 [facility] Comment on above: Order Comment: Speci men Type: BLOOD SPECIMEN Ordering Facility: [facility] Address: [address] [place] [address] Performed By: #### 1 4196-0 #### [facility] CLIA [id number] [address] [place] [address] #### [id number] #### [facility] CLIA [id number] [address] [place] [address] [place] #### [id number] #### [facility] CLIA [id number] [address] [place] [address] LAB CLIA [id number] [address] [place] [address] [place] Eosinophils/100 WBC (Bld) 1.0 % Normal [facility] Comment on above: Order Comment: Speci men Type: BLOOD SPECIMEN Ordering Facility: [facility] Address: [address] [place] [address] Performed By: #### 1 4196-0 #### [facility] CLIA [id number] [address] [place] [address] #### [id number] #### [facility] CLIA [id number] [address] [place] [address] [place] #### [id number] #### [facility] CLIA [id number] [address] [place] [address] LAB CLIA [id number] [address] [place] [address] [place] Erythrocyte distribution wid th (RBC) [Ratio] 13.9 % Normal 11.5-15.0 [facility] Comment on above: Order Comment: Speci men Type: BLOOD SPECIMEN Ordering Facility: [facility] Address: [address] [place] [address] Performed By: #### 1 4196-0 #### [facility] CLIA [id number] [address] [place], [place] [address] #### [id number] #### [facility] CLIA [id number] [address] [place] [address] [place] #### [id number] #### [facility] CLIA [id number] [address] [place] [address] LAB CLIA [id number] [address] [place] [address] [place] Hematocrit (Bld) [Volume fraction] 35.7 % Low 3 9.0-51.0 [facility] Comment on above: Order Comment: Speci men Type: BLOOD SPECIMEN Ordering Facility: [facility] Address: [address] [place] [address] Performed By: #### 1 4196-0 #### [facility] CLIA [id number] [address] [place] [address] #### [id number] #### [facility] CLIA [id number] [address] [place] [address] [place] #### 22661-0 #### [facility] CLIA [id number] [address] [place] [address] LAB CLIA [id number] [address] [place] [address] [place] Hemoglobin (Bld) [Mass/Vol] 11.4 g/dL Low 13.0-17. 0 [facility] Comment on above: Order Comment: Speci men Type: BLOOD SPECIMEN Ordering Facility: [facility] Address: [address] [place] [address] Performed By: #### 1 4196-0 #### [facility] CLIA [id number] [address] [place] [address] #### [id number] #### [facility] CLIA [id number] [facility] [place] [address] [place] #### 71761-9 #### [facility] CLIA [id number] [address] [place] [address] LAB CLIA [id number] [address] [place] [address] [place] Lymphocytes (Bld) [#/Vol] 17.32 10*3/uL High 1.00-4. 00 [facility] Comment on above: Order Comment: Speci men Type: BLOOD SPECIMEN Ordering Facility: [facility] Address: [address] [place] [address] Performed By: #### 1 4196-0 #### [facility] CLIA [id number] [address] [place] [address] #### [id number] #### [facility] CLIA [id number] [address] [place] [address] [place] #### 42961-9 #### [facility] CLIA [id number] [address] [place] [address] LAB CLIA [id number] [address] [place] [address] [place] Lymphocytes/100 WBC (Bld) 80.0 % Normal [facility] Comment on above: Order Comment: Speci men Type: BLOOD SPECIMEN Ordering Facility: [facility] Address: [address] [place] [id number] Performed By: #### 1 4196-0 #### [facility] CLIA [id number] [address] [place] [address] #### [id number] #### [facility] CLIA [id number] [address] [place] [address] [place] #### [id number] #### [facility] CLIA [id number] [address] [place] [address] LAB CLIA [id number] [address] [place] [address] [place] MCH (RBC) [Entitic mass] 30.1 pg Normal 26.0-34.0 [facility] Comment on above: Order Comment: Speci men Type: BLOOD SPECIMEN Ordering Facility: [facility] Address: [address] [place] [address] Performed By: #### 1 4196-0 #### [facility] CLIA [id number] [address] [place] [address] #### [id number] #### [facility] CLIA [id number] [address] [place] [address] [place] #### [id number] #### [facility] CLIA [id number] [address] [place] [address] LAB CLIA [id number] [address] [place] [address] [place] MCHC (RBC) [Mass/Vol] 31.9 g/dL Normal 30.5-36.0 [facility] Comment on above: Order Comment: Speci men Type: BLOOD SPECIMEN Ordering Facility: [facility] Address: [address] [place] [address] Performed By: #### 1 4196-0 #### [facility] CLIA [id number] [address] [place] [address] #### [id number] #### [facility] CLIA [id number] [address] [place] [address] [place] #### [id number] #### [facility] CLIA [id number] [address] [place] [address] LAB CLIA [id number] [address] [place] [address] [place] MCV (RBC) [Entitic vol] 94.2 fL Normal 80.0-100.0 C [facility] Comment on above: Order Comment: Speci men Type: BLOOD SPECIMEN Ordering Facility: [facility] Address: [address] [place] [address] Performed By: #### 1 4196-0 #### [facility] CLIA [id number] [address] [place] [address] #### [id number] #### [facility] CLIA [id number] [address] [place] [address] [place] #### [id number] #### [facility] CLIA [id number] [address] [place] [address] LAB CLIA [id number] [address] [place] [address] [place] Monocytes (Bld) [#/Vol] 0.43 10*3/uL Normal <0.87 [facility] Comment on above: Order Comment: Speci men Type: BLOOD SPECIMEN Ordering Facility: [facility] Address: [address] [place] [address] Performed By: #### 1 4196-0 #### [facility] CLIA [id number] [address] [place] [address] #### [id number] #### [facility] CLIA [id number] [address] [place] [address] [place] #### 73811-5 #### [facility] CLIA [id number] [address] [place] [address] LAB CLIA [id number] [address] [place] [address] [place] Monocytes/100 WBC (Bld) 2.0 % Normal C [facility] Comment on above: Order Comment: Speci men Type: BLOOD SPECIMEN Ordering Facility: [facility] Address: [address] [id number] Performed By: #### 1 4196-0 #### [facility] CLIA [id number] [address] [place], [place] [address] #### [id number] #### [facility] CLIA [id number] [address] [place] [address] [place] #### [id number] #### [facility] CLIA [id number] [address] [place] [address] LAB CLIA [id number] [address] [place] [address] [place] Neutrophils (Bld) [#/Vol] 3.68 10*3/uL Normal 1.45-7.5 0 [facility] Comment on above: Order Comment: Speci men Type: BLOOD SPECIMEN Ordering Facility: [facility] Address: [address] [place] [address] Performed By: #### 1 4196-0 #### [facility] CLIA [id number] [address] [place] [address] #### [id number] #### [facility] CLIA [id number] [address] [place] [address] [place] #### 52117-0 #### [facility] CLIA [id number] [address] [place], [place] [address] [facility] CLIA [id number] [address] [place] [address] [place] Neutrophils/100 WBC (Bld) 17.0 % Normal [facility] Comment on above: Order Comment: Speci men Type: BLOOD SPECIMEN Ordering Facility: [facility] Address: [address] [address] Performed By: #### 1 4196-0 #### [facility] CLIA [id number] [address] [place] [address] #### [id number] #### [facility] CLIA [id number] [facility] [place] [address] [place] #### [id number] #### [facility] CLIA [id number] [address] [place], [place] [address] [facility] CLIA [id number] [address] [place], [place] [address] [place] Nucleated RBC (Bld) [#/Vol] 10*3/uL Normal <0.01 [facility] Comment on above: Order Comment: Speci men Type: BLOOD SPECIMEN Ordering Facility: [facility] Address: [address] [place] [address] Performed By: #### 1 4196-0 #### [facility] CLIA [id number] [address] [place], [place] [address] #### [id number] #### [facility] CLIA [id number] [address] [place] [address] [place] #### 44280-0 #### [facility] CLIA [id number] [address] [place], [place] [address] [facility] CLIA [id number] [address] [place] [address] [place] Nucleated RBC/100 WBC (Bld) [Ratio] 0.0 /100 WBC Normal [facility] Comment on above: Order Comment: Speci men Type: BLOOD SPECIMEN Ordering Facility: [facility] Address: [address] [id number] Performed By: #### 1 4196-0 #### [facility] CLIA [id number] [address] [place] [address] #### [id number] #### [facility] CLIA [id number] [address] [place], [place] [address] [place] #### [id number] #### [facility] CLIA [id number] [address] [place] [address] LAB CLIA [id number] [address] [place] [address] [place] Ovalocytes LM Ql (Bld) Few Normal Cl [facility] Comment on above: Order Comment: Speci men Type: BLOOD SPECIMEN Ordering Facility: [facility] Address: [address] [place] [address] Performed By: #### 1 4196-0 #### [facility] CLIA [id number] [address] [place] [address] #### [id number] #### [facility] CLIA [id number] [address] [place] [address] [place] #### 23091-6 #### [facility] CLIA [id number] [address] [place] [address] LAB CLIA [id number] [address] [place] [address] [place] Platelet mean volume (Bld) [Entitic vol] 10.1 fL Normal 9.0-12.7 [facility] Comment on above: Order Comment: Speci men Type: BLOOD SPECIMEN Ordering Facility: [facility] Address: [address] [place] [address] Performed By: #### 1 4196-0 #### [facility] CLIA [id number] [address] [place] [address] #### [id number] #### [facility] CLIA [id number] [address] [place] [address] [place] #### 72151-9 #### [facility] CLIA [id number] [address] [place] [address] LAB CLIA [id number] [address] [place] [address] [place] Platelets (Bld) [#/Vol] 148 10*3/uL Low 150-400 [facility] Comment on above: Order Comment: Speci men Type: BLOOD SPECIMEN Ordering Facility: [facility] Address: [address] [place] [address] Performed By: #### 1 4196-0 #### [facility] CLIA [id number] [address] [place] [address] #### [id number] #### [facility] CLIA [id number] [address] [place] [address] [place] #### 63309-8 #### [facility] CLIA [id number] [address] [place] [address] LAB CLIA [id number] [address] [place] [address] [place] Platelets Estimate (Bld) [#/Vol] Decreased Normal [facility] Comment on above: Order Comment: Speci men Type: BLOOD SPECIMEN Ordering Facility: [facility] Address: [address] [place] [address] Performed By: #### 1 4196-0 #### [facility] CLIA [id number] [address] [place] [address] #### [id number] #### [facility] CLIA [id number] [address] [place] [address] [place] #### 33004-9 #### [facility] CLIA [id number] [address] [place] [address] LAB CLIA [id number] [address] [place] [address] [place] Polychromasia LM Ql (Bld) Slight Normal [facility] Comment on above: Order Comment: Speci men Type: BLOOD SPECIMEN Ordering Facility: [facility] Address: [address] [place] [address] Performed By: #### 1 4196-0 #### [facility] CLIA [id number] [address] [place], [place] [address] #### [id number] #### [facility] CLIA [id number] [address] [place] [address] [place] #### 40999-6 #### [facility] CLIA [id number] [address] [place] [address] LAB CLIA [id number] [address] [place] [address] [place] RBC (Bld) [#/Vol] 3.79 10*6/uL Low 4.20-6.00 [facility] Comment on above: Order Comment: Speci men Type: BLOOD SPECIMEN Ordering Facility: [facility] Address: [address] [place] [address] Performed By: #### 1 4196-0 #### [facility] CLIA [id number] [address] [place] [address] #### [id number] #### [facility] CLIA [id number] [address] [place] [address] [place] #### 93804-6 #### [facility] CLIA [id number] [address] [place] [address] LAB CLIA [id number] [address] [place] [address] [place] RED CELL MORPH Reviewed: see result s of individual morphologies Normal [facility] Comment on above: Order Comment: Speci men Type: BLOOD SPECIMEN Ordering Facility: [facility] Address: [address] [place] [address] Performed By: #### 1 4196-0 #### [facility] CLIA [id number] [address] [place] [address] #### [id number] #### [facility] CLIA [id number] [address] [place] [address] [place] #### 65074-9 #### [facility] CLIA [id number] [address] [place] [address] LAB CLIA [id number] [address] [place] [address] [place] WBC (Bld) [#/Vol] 21.65 10*3/uL High 3.70-11.00 [facility] Comment on above: Order Comment: Speci men Type: BLOOD SPECIMEN Ordering Facility: [facility] Address: [address] [place] [address] Performed By: #### 1 4196-0 #### [facility] CLIA [id number] [address] [place] [address] #### [id number] #### [facility] CLIA [id number] [address] [place] [address] [place] #### 02055-8 #### [facility] CLIA [id number] [address] [place] [address] LAB CLIA [id number] [address] [place] [address] [place] CNOVSPon 03-04-2023 CNOVSP Visit (SP) Office (H EMASA) MALIK LADD ([id number]) 1950 M Date Time Provider Department 03/04/23 4:00 PM ALEX BARAJAS During your visit today, we recorded the following information about you: Temperature Pulse Respiration Blood pressure 97 degrees 62/minute 16/minute 127/68 Weight Height 99.8 kg 1.803 m Alex Barajas MD 03/05/2023 10:32 AM Signed PATIENT NAME: Malik Ladd DATE: 03/04/2023 PRIMARY CARE PHYSICIAN: Nino Valentin DO OTHER PHYSICIANS: Dr. Finney, Dr. Rios, Dr. Escalera HPI: This is a 72 year old male referred for evaluation of lymphocytosis and lymphadenopathy. The patient recently presented to his PCP with several complaints including night sweats, weight loss, and palpable lymph nodes. Labs obtained 01/25/2023 included a CBC which revealed significant lymphocytosis with a total WBC of 22.4. CT scans obtained 02/08/2023 revealed bilateral inguinal adenopathy. The patient was referred to surgery, and recommendations were to proceed with an excisional biopsy. Apparently preop testing revealed evidence of heart disease, and initial plans for surgery were canceled. The patient subsequently was referred to cardiology, and now is scheduled to undergo a cardiac catheterization followed by pacemaker placement. Past medical history is significant for type 2 diabetes and previously resected prostate cancer. Review of systems significant for weight loss of 15 pounds in the past 1 month. Persistent night sweats for the past 1 month. No unusual weight loss. No unusual pain. He has chronic leg swelling ever since prostate cancer surgery. No difficulties with urination. The patient has a history of smoking, quit 20 years ago. Does not drink significantly. 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 No current facility-administered medications for this visit. ALLERGIES: ALLERGIES Not on File PAST MEDICAL HISTORY: PAST MEDICAL HISTORY Diagnosis Date Leukocytosis PAST SURGICAL HISTORY: No past surgical history on file. FAMILY HISTORY: No family history on file. SOCIAL HISTORY: COMPLETE REVIEW OF SYSTEMS: As above. PHYSICAL EXAM: BP 127/68 Pulse 62 Temp 36.1 ?C (97 ?F) (Temporal) Resp 16 Ht 180.3 cm (5' 11 ) Wt 99.8 kg (220 lb) SpO2 97% BMI 30.68 kg/m? GENERAL EXAM: Well developed/well nourished; in no acute distress. SKIN: Negative for lesions, rashes, or ulcers on the upper and lower extremities and face. Negative for palpations/nodules, purpura, and ecchymosis. EENT: Negative for conjunctiva, mucosal pallor, JVD, LAP, thyromegaly, and glossitis. Supple AND PERRL. EXTREMITIES: Negative for cyanosis, clubbing, and crepitus. LUNGS: Negative to auscultation, respiratory effort, and percussion. CARDIOVASCULAR: Regular rate. Negative for murmurs/S3S4/abnormal sounds, edema, and carotid bruits. ABDOMEN: Negative for masses, hernia, and spleen/liver abnormalities. RECTAL: Not done PSYCHIATRIC: Negative for mood/affect changes, recent AND remote memory changes, and judgement and insight. NEUROLOGICAL: Alert, oriented x person, place, time. Cranial nerves 2-12 intact. Sensory for pain, light touch, vibration intact on all 4 extremities. Reflexes symmetric for biceps/brachioradial/patella/achilles. MUSCULOSKELETAL: 1-2+ bilateral lower extremity swelling from the knees down. Lymph nodes palpable in the inguinal area measuring 2 to 3 cm on the right, 3 to 4 cm on the left. Shotty lymph nodes palpable in the right axilla. LABS: Hemoglobin (g/dL) Date Value 03/04/2023 11.4 Hematocrit (%) Date Value 03/04/2023 35.7 WBC (k/uL) Date Value 03/04/2023 21.65 Platelet Count (k/uL) Date Value 03/04/2023 148 RADIOLOGY/OTHER STUDIES: 02/08/2023 CT abdomen/pelvis ([facility]) Numerous enlarged lymph nodes in both inguinal regions measuring up to 2.7 cm on the right, and 3.3 cm on the left. The liver is normal in size. The spleen is normal size without focal lesions. No retroperitoneal lymphadenopathy. ASSESSMENT/PLAN: 1. Lymphocytosis and lymphadenopathy - suspected lymphoproliferative disorder - ICD9: 288.61, ICD10: D72.820 (primary diagnosis) December 2022 the patient presented with night sweats and weight loss. On exam was found to have significant bilateral inguinal adenopathy. Labs reveal lymphocytosis with mild anemia and thrombocytopenia. Most likely the patient has an underlying lymphoproliferative disorder. Differential diagnosis includes CLL versus low-grade lymphoma. Will check additional labs today including peripheral blood flow cytometry. Based on results further testing will be considered including PET scan, lymph node biopsy +/- bone marrow biopsy. When the diagnosis is confirmed treatment options will be discussed. (more content not included)... Normal [facility] Comprehensive metabolic 2000 panelon 03-04-2023 Albumin [Mass/Vol] 4.3 g/dL Normal 3.9-4.9 [facility] Comment on above: Order Comment: Speci men Type: BLOOD SPECIMEN Ordering Facility: [facility] Address: [address] [place] [address] Performed By: #### 3 084-1, 85221-8, 2531-0 #### [facility] CLIA [id number] [address] [place] [address] 53056 ALP [Catalytic activity/Vol] 75 U/L Normal 38-113 [facility] Comment on above: Order Comment: Speci men Type: BLOOD SPECIMEN Ordering Facility: [facility] Address: [address] [place] [address] Performed By: #### 3 084-1, , 2531-0 #### [facility] CLIA [id number] [address] [place] [address] 30205 ALT [Catalytic activity/Vol] 9 U/L Low 10-54 [facility] Comment on above: Order Comment: Speci men Type: BLOOD SPECIMEN Ordering Facility: [facility] Address: [address] [place] [address] Performed By: #### 3 084-1, , 2531-0 #### [facility] CLIA [id number] [address] [place] [address] 18843 Anion gap [Moles/Vol] 8 mmol/L Low 9-18 [facility] Comment on above: Order Comment: Speci men Type: BLOOD SPECIMEN Ordering Facility: [facility] Address: [address] [place] [address] Performed By: #### 3 084-1, , 2531-0 #### [facility] CLIA [id number] [address] [place] [address] 77194 AST [Catalytic activity/Vol] 9 U/L Low 14-40 [facility] Comment on above: Order Comment: Speci men Type: BLOOD SPECIMEN Ordering Facility: [facility] Address: [address] [place] [address] Performed By: #### 3 084-1, , 0 #### [facility] CLIA [id number] [address] [place] [address] 93170 Bilirubin [Mass/Vol] 1.0 mg/dL Normal 0.2-1.3 [facility] Comment on above: Order Comment: Speci men Type: BLOOD SPECIMEN Ordering Facility: [facility] Address: [address] [place] [address] Performed By: #### 3 084-1, , 0 #### [facility] CLIA [id number] [address] [place] [address] 89689 Calcium [Mass/Vol] 9.3 mg/dL Normal 8.5-10.2 [facility] Comment on above: Order Comment: Speci men Type: BLOOD SPECIMEN Ordering Facility: [facility] Address: [address] [place] [address] Performed By: #### 3 084-1, , 0 #### [facility] CLIA [id number] [address] [place] [address] 68823 Chloride [Moles/Vol] 105 mmol/L Normal 97-105 [facility] Comment on above: Order Comment: Speci men Type: BLOOD SPECIMEN Ordering Facility: [facility] Address: [address] [place] [address] Performed By: #### 3 084-1, , 0 #### [facility] CLIA [id number] [address] [place] [address] 81756 CO2 [Moles/Vol] 26 mmol/L Normal 22-30 [facility] Comment on above: Order Comment: Speci men Type: BLOOD SPECIMEN Ordering Facility: [facility] Address: [address] [address] Performed By: #### 3 084-1, 62445-9, 0 #### [facility] CLIA [id number] [address] [place] [address] 15863 Creatinine [Mass/Vol] 0.73 mg/dL Normal 0.73-1.22 [facility] Comment on above: Order Comment: Speci men Type: BLOOD SPECIMEN Ordering Facility: [facility] Address: [address] [place] [address] Performed By: #### 3 084-1, 40911-3, 2531-0 #### [facility] CLIA [id number] [address] [place] [address] 48538 Creatinine and Glomerular filtration rate.predicted panel (S/P/Bld) 95 mL/min/1.73m??? Normal >=60 [facility] Comment on above: Order Comment: Speci men Type: BLOOD SPECIMEN Ordering Facility: [facility] Address: [address] [place] [address] Result Comment: Francisca mated Glomerular Filtration Rate (eGFR) is calculated using the 2020 CKD-EPI creatinine equation. This equation utilizes serum creatinine, sex, and age as parameters. The creatinine assay has traceable calibration to isotope dilution-mass spectrometry. Refer to KDIGO guidelines for clinical interpretation. In patients with unstable renal function, e.g. those with acute kidney injury, the eGFR may not accurately reflect actual GFR. Performed By: #### 3 084-1, 31409-8, 2531-0 #### [facility] CLIA [id number] [address] [place] [address] 98560 Glucose [Mass/Vol] 232 mg/dL High 74-99 [facility] Comment on above: Order Comment: Speci men Type: BLOOD SPECIMEN Ordering Facility: [facility] Address: [address] [place] [address] Result Comment: The [place] Diabetes [employer] (ADA) provides guidance for cutoff values for fasting glucose and random glucose. The ADA defines fasting as no caloric intake for at least 8 hours. Fasting plasma glucose results between 100 to 125 mg/dL indicate increased risk for diabetes (prediabetes). Fasting plasma glucose results greater than or equal to 126 mg/dL meet the criteria for diagnosis of diabetes. In the absence of unequivocal hyperglycemia, results should be confirmed by repeat testing. In a patient with classic symptoms of hyperglycemia or hyperglycemic crisis, random plasma glucose results greater than or equal to 200 mg/dL meet the criteria for diagnosis of diabetes. Reference: Standards of Medical Care in Diabetes 2016, [place] [employer]. Diabetes Care. 2016.39(Suppl 1). Performed By: #### 3 084-1, , 0 #### [facility] CLIA [id number] [address] [place] [address] Potassium [Moles/Vol] 4.0 mmol/L Normal 3.7-5.1 [facility] Comment on above: Order Comment: Speci men Type: BLOOD SPECIMEN Ordering Facility: [facility] Address: [address] [place] [address] Performed By: #### 3 084-1, , 0 #### [facility] CLIA [id number] [address] [place] [address] 99383 Protein [Mass/Vol] 6.6 g/dL Normal 6.3-8.0 [facility] Comment on above: Order Comment: Speci men Type: BLOOD SPECIMEN Ordering Facility: [facility] Address: [address] [place] [address] Performed By: #### 3 084-1, , 0 #### [facility] CLIA [id number] [address] [place] [address] Sodium [Moles/Vol] 139 mmol/L Normal 136-144 [facility] Comment on above: Order Comment: Speci men Type: BLOOD SPECIMEN Ordering Facility: [facility] Address: [address] [place] [address] Performed By: #### 3 084-1, , 0 #### [facility] CLIA [id number] [address] [place] [address] 67649 Urea nitrogen [Mass/Vol] 22 mg/dL Normal 9-24 [facility] Comment on above: Order Comment: Laverne elder Type: BLOOD SPECIMEN Ordering Facility: [facility] Address: [address] [place] [address] Performed By: #### 3 084-1, 57982-6, 2532-0 #### [facility] CLIA [id number] [address] [place] [address] 85602 ECG 12 Leadon 03-04-2023 ECG revealed A-V dis sociation, escape junctional rhythm with a rate of 54 bpm [facility] Work Phone: FLOW CYTOMETRY FOR LEUKEMIA/ LYMPHOMA (FCLL) PERFORMABLEon 03-04-2023 FLOW CYTOMETRY ORDER STATUS See Results in chart under F case ID Normal [facility] Comment on above: Order Comment: Laverne elder Type: BLOOD SPECIMEN Ordering Facility: [facility] Address: [address] [place] [address] Performed By: #### F CLLP, FCLLRFLX #### [facility] CLIA [id number] [address] [place] [address] [place] FLOW CYTOMETRY FOR LEUKEMIA/ LYMPHOMA (FCLL) REFLEXon 03-04-2023 DIAGNOSIS COMMENT Normal [facility] Comment on above: Order Comment: Laverne elder Type: BLOOD SPECIMEN Ordering Facility: [facility] Address: [address] [place] [address] Result Comment: This test was developed and its performance characteristics determined by [facility]'s [facility] [place] ([facility]). It has not been cleared or approved by the FDA. [facility] is regulated under CLIA as qualified to perform high-complexity testing. This test is used for clinical purposes. It should not be regarded as investigational or for research. Performed By: #### F CLLP, FCLLRFLX #### [facility] CLIA [id number] [address] [place] [address] [place] FINAL PERFORMING LAB [facility] Comment on above: Order Comment: Speci men Type: BLOOD SPECIMEN Ordering Facility: [facility] Address: [address] [place] [address] Result Comment: Diag nostic interpretation performed at [facility], [facility] [place] [address] CLIA# [id number] [employer]: Lalo Hartman M.D. Performed By: #### F CLLP, FCLLRFLX #### [facility] CLIA [id number] [address] [facility] [address] STATES OF [facility] FLOW CYTOMETRY RESULTS Normal [facility] Comment on above: Order Comment: Speci jerrod Type: BLOOD SPECIMEN Ordering Facility: [facility] Address: [address] [place] [address] Result Comment: Spec imen type: Peripheral blood CBC (03/04/2023): WBC = 23.24 K/uL; Hgb = 11.8 g/dL; Plt = 151 K/uL Differential (%): Neutrophil: 15.5; Lymphocyte: 80.1; Monocyte: 3.0; Eosinophil: 0.9; Basophil: 0.3 Morphology: Absolute and relative lymphocytosis with small, mature lymphocytes with mature chromatin. Viability: 99% Flow Cytometry Peripheral Blood Immunophenotyping Marker Normal Cell Type Result (Abnormal B Lymphocytes) CD2 T/NK cells Negative CD3 T-cells Negative CD4 T-cell subset Negative CD5 T-cells Positive CD7 T/NK-cells Negative CD8 T-cell subset Negative CD10 B-cell subset Negative CD13 Myeloid Negative CD16/56 NK cells Negative CD19 B-cells Positive CD20 B-cells Positive CD23 B-cells subset Positive CD45 Herrmann-leukocyte Positive CD123 Dendritic Negative CD200 B-cells Positive kappa/lambda B-cells Negative TRBC1 T-cells Negative Flow cytometric analysis of the peripheral blood reveals that 77% of total events have the CD45 and side scatter properties of lymphocytes. The lymphocytes are T-cells (12%; CD4:CD8 ratio = 2.67), NK cells (3%) and abnormal B-cells (85%). The B-cells are positive for CD5, CD19, CD20, CD23, CD45, CD200. The B-cells are negative for CD10, CD123, or for surface immunoglobulin light chains. Performed By: #### F CLLP, FCLLRFLX #### [facility] CLIA [id number] [address] [place] [address] [place] GROSS DESCRIPTION A. BLOOD Normal [facility] Comment on above: Order Comment: Speci men Type: BLOOD SPECIMEN Ordering Facility: [facility] Address: [address] [place] [address] Result Comment: RECE IVED TWO 2 ML TUBES OF PERIPHERAL BLOOD IN EDTA Performed By: #### F CLLP, FCLLRFLX #### [facility] CLIA [id number] [address] [place] [address] [place] INTERPRETATION Normal [facility] Comment on above: Order Comment: Speci jerrod Type: BLOOD SPECIMEN Ordering Facility: [facility] Address: [address] [place] [address] Result Comment: The findings are diagnostic of chronic lymphocytic leukemia/small lymphocytic lymphoma (CLL/SLL). Correlation with the clinical findings is suggested. Performed By: #### F CLLP, FCLLRFLX #### [facility] CLIA [id number] [address] [place] [address] [place] LDH SerPl-cCncon 03-04-2023 LDH [Catalytic activity/Vol] 175 U/L Normal 135-225 [facility] Comment on above: Order Comment: Speci men Type: BLOOD SPECIMEN Ordering Facility: [facility] Address: [address] [place] [address] Performed By: #### 3 084-1, 96992-7, 2532-0 #### [facility] CLIA [id number] [address] [place], [place] [id number] PATH INTERP CBCDIF (LAB REFL EX ORDER-NO BILL)on 03-04-2023 Armature Repairer review Barry (Unsp spec) [Interp] Reviewed by Jabari Valdovinos MD, PhD Normal [facility] Comment on above: Order Comment: Speci men Type: BLOOD SPECIMEN Ordering Facility: [facility] Address: [address] [place] [address] Performed By: #### 1 4196-0 #### [facility] CLIA [id number] [address] [place] [address] #### [id number] #### [facility] CLIA [id number] [address] [place] [address] [place] #### [id number] #### [facility] CLIA [id number] [address] [place] [address] LAB CLIA [id number] [address] [place] [address] [place] STAFF REVIEW, CBCDIF [facility] Comment on above: Order Comment: Speci men Type: BLOOD SPECIMEN Ordering Facility: [facility] Address: [place] [address] Result Comment: Norm ocytic anemia with slight polychromasia\X09\ Absolute lymphocytosis suggests low grade lymphoproliferative disorder Recommend flow cytometry if clinically indicated Thrombocytopenia Performed By: #### 1 4196-0 #### [facility] CLIA [id number] [address] [place] [address] #### [id number] #### [facility] CLIA [id number] [address] [place] [address] [place] #### [id number] #### [facility] CLIA [id number] [address] [place] [address] LAB CLIA [id number] [address] [place] [address] [place] Retics #on 03-04-2023 Reticulocytes (Bld) [#/Vol] 0.77122 10*3/uL Normal 0.0 18-0.100 [facility] Comment on above: Order Comment: Speci men Type: BLOOD SPECIMEN Ordering Facility: [facility] Address: [address] [place] [address] Performed By: #### 1 4196-0 #### [facility] CLIA [id number] [address] [place] [address] #### [id number] #### [facility] CLIA [id number] [address] [place] [address] [place] #### 53398-0 #### [facility] CLIA [id number] [address] [place] [address] LAB CLIA [id number] [address] [place] [address] [place] Reticulocytes (Bld) [#/Vol]o n 03-04-2023 Reticulocytes/100 RBC (Bld) 1.9 % Normal 0.4-2.0 [facility] Comment on above: Order Comment: Speci men Type: BLOOD SPECIMEN Ordering Facility: [facility] Address: [address] [place] [address] Performed By: #### 1 4196-0 #### [facility] CLIA [id number] [address] [place] [address] #### [id number] #### [facility] CLIA [id number] [address] [place] [address] [place] #### [id number] #### [facility] CLIA [id number] [address] [place] [address] LAB CLIA [id number] [address] [place] [address] [place] Urate SerPl-mCncon 3 Urate [Mass/Vol] 3.8 mg/dL Low 4.0-8.1 [facility] Comment on above: Order Comment: Speci men Type: BLOOD SPECIMEN Ordering Facility: [facility] Address: [address] [place] [address] Performed By: #### 3 084-1, 90582-9, 2532-0 #### [facility] CLIA [id number] [address] [place] [address] Anisocytosis LM Ql (Bld)Orde red By: Deniz Finney on 02-26-2023 Anisocytosis Ql (Bld) Slight [facility] Basic Metabolic Panelon Anion gap [Moles/Vol] 9.6 mmol/L Normal 6.0-15.0 [facility] Comment on above: Performed By: #### S CAN CBC, BMP #### [facility] [address] Calcium [Mass/Vol] 9.0 mg/dL Normal 8.6-10.3 [facility] Comment on above: Result Comment: PERF ORMED BY: [facility] [address] [facility] [place] [address] PATHOLOGIST PEDAL ASSEMBLER ZEV PARRA M.D. Performed By: #### S CAN CBC, BMP #### [facility] [address] [place] [address] [place] Chloride [Moles/Vol] 106 mmol/L Normal 98-107 [facility] Comment on above: Performed By: #### S CAN CBC, BMP #### [facility] [address] [place] [id number] [place] CO2 [Moles/Vol] 27.9 mmol/L Normal 21.0-31.0 [facility] Comment on above: Performed By: #### S CAN CBC, BMP #### [facility] [address] [place] [id number] [place] Creatinine [Mass/Vol] 0.80 mg/dL Normal 0.70-1.30 [facility] Comment on above: Performed By: #### S CAN CBC, BMP #### [facility] [address] [place] [id number] [place] GFR/1.73 sq M.predicted MDRD (S/P/Bld) [Vol rate/Area] mL/min/{1.73_m2} Normal [facility] Comment on above: Performed By: #### S CAN CBC, BMP #### [facility] [address] Glucose [Mass/Vol] 440 mg/dL High 70-100 [facility] Comment on above: Result Comment: [place] Glucose Reference Range is dependent on time and content of last meal. Glucose of more than 200 mg/dL in a nonstressed, ambulatory subject supports the diagnosis of Diabetes Mellitus. ADA recommended reference range Performed By: #### S CAN CBC, BMP #### [facility] [address] Potassium [Moles/Vol] 4.5 mmol/L Normal 3.5-5.1 [facility] Comment on above: Performed By: #### S CAN CBC, BMP #### [facility] [address] [place] [address] [place] Sodium [Moles/Vol] 139 mmol/L Normal 136-145 [facility] Comment on above: Performed By: #### S CAN CBC, BMP #### [facility] [address] [place] [address] [place] Urea nitrogen [Mass/Vol] 32 mg/dL High 7-25 [facility] Comment on above: Performed By: #### S CAN CBC, BMP #### [facility] [address] [place] [address] [place] Basophils Auto (Bld) [#/Vol] Ordered By: Deniz Finney on 02-26-2023 Basophils (Bld) [#/Vol] 0.0 10*3/uL 0.0-0.2 [facility] Basophils/100 WBC Auto (Bld) Ordered By: Deniz Finney on 02-26-2023 Basophils/100 WBC (Bld) 0.2 % . [facility] Calcium [Mass/volume] in Ser um or PlasmaOrdered By: Deniz Finney on 02-26-2023 Calcium [Mass/Vol] 9.0 mg/dL 8.6-10.3 [facility] Carbon dioxide, total [Moles /volume] in Serum or PlasmaOrdered By: Deniz Finney on 02-26-2023 CO2 [Moles/Vol] 27.9 mmol/L 21.0-31.0 [facility] Chloride [Moles/volume] in S mariluz or PlasmaOrdered By: Deniz Finney on 02-26-2023 Chloride [Moles/Vol] 106 mmol/L 98-107 [facility] Creatinine [Mass/volume] in Serum or PlasmaOrdered By: Deniz Finney on 02-26-2023 Creatinine [Mass/Vol] 0.80 mg/dL 0.70-1.30 [facility] ECG 12 lead ECGon 02-26-2023 ECG 12 lead ECG [facility] [address] Electrocardiograph Report Signed Patient: Malik Ladd MR#: [id number] : 1950 Acct:[id number] Age/Sex: 72 / M ADM Date: 02/26/23 Loc: Room: Type: [facility] Attending Dr: Deniz Finney DO Ordering Provider: Deniz Finney DO Date of Service: 02/26/2304/20/1204 ECG/ECG 12 lead ECG: PST Copies to: Test Reason : Blood Pressure : / mmHG Vent. Rate : 061 BPM Atrial Rate : 062 BPM P-R Int : 000 ms QRS Dur : 080 ms QT Int : 458 ms P-R-T Axes : 000 046 056 degrees QTc Int : 461 ms Junctional rhythm Septal infarct , age undetermined Abnormal ECG When compared with ECG of 03-NOV-2016 08:20, Junctional rhythm has replaced Sinus rhythm Septal infarct is now present QT has lengthened Confirmed by JW RECIO [facility] ([id number]) on 02/27/2023 12:59:58 AM Referred By: ZAID Electronically Signed By:MICKEY ESCALERA MD FACYolie Transcribed By: MUS Signed By Darryl Escalera MD 02/27/23 0059 Normal [facility] Eosinophils Auto (Bld) [#/Vo l]Ordered By: Deniz Finney on 02-26-2023 Eosinophils (Bld) [#/Vol] 0.2 10*3/uL 0.0-0.45 [facility] Eosinophils/100 WBC Auto (Bl d)Ordered By: Deniz Finney on 02-26-2023 Eosinophils/100 WBC (Bld) 0.8 % . [facility] Erythrocyte distribution wid th Auto (RBC) [Ratio]Ordered By: Deniz Finney on 02-26-2023 Erythrocyte distribution wid th (RBC) [Ratio] 14.5 % 12.0-14.8 [facility] Glucose [Mass/volume] in Ser um or PlasmaOrdered By: Deniz Finney on 02-26-2023 Glucose [Mass/Vol] 440 mg/dL 70-100 [facility] Comment on above: ADA recommended refe rence rangeRandom Glucose Reference Range is dependent on time and content of last meal. Glucose of more than 200 mg/dL in a nonstressed, ambulatory subject supports the diagnosis of Diabetes Mellitus. Hematocrit Auto (Bld) [Volum e fraction]Ordered By: Deniz Finney on 02-26-2023 Hematocrit (Bld) [Volume fraction] 35.4 % 3 8.8-50.0 [facility] Hemoglobin [Mass/volume] in BloodOrdered By: Deniz Finney on 02-26-2023 Hemoglobin (Bld) [Mass/Vol] 11.4 g/dL 13.0-17. 0 [facility] Nicho 02-26-2023 L Specimen: [id number] Received: 02/26/23 Status: MARCELINO Leigh Num: [id number] Spec Type: Impression Subm Dr: Deniz Finney,DO Tissues: PATHPER Procedures: PATHREVIEW Age/ Patient Sex Location Account Attending Physician Malik Ladd/Megan SALAS [id number] Deniz Finney DO SPEC NUM: [id number] RECD: 02/26/23 STATUS: MARCELINO LEIGH NUM: [id number] VANESSA: 02/26/23 DR: Deniz Finney DO ENTERED: 02/26/[address] [facility] [address]: CITLALI TYPE: Impression DEPT: NE ORDERED: PATHREVIEW ORDERED: PATHREVIEW Pathologist Review Abnormal CBC for peripheral blood smear review: - Mild anemia of normocytic type, including few elliptocytes, occasional bite cells, and at least rare polychromatophils also noted - Mild thrombocytopenia - Mild leukocytosis and mild lymphocytosis including few smudge cells, and showing small lymphocytes often with ovoid nuclei and high NC ratio, and at least rare prolymphocytes, compatible mild atypical lymphocytosis, and 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 more than the just monoclonal B-cell lymphocytosis, given the already noted anemia and thrombocytopenia Comment -Given the noted anemia and thrombocytopenia, additional flow cytometry analysis of the peripheral blood is also highly suggested for the confirmation of CLL/SLL in this case to be followed by continuous close patient and laboratory follow-ups CPT: 03218 CBC Date Time Test Result Flag (u) Normal Range 02/26/23 1255 WBC 20.4 H 4.1-10.5 X10E3/uL RBC 3.76 L 3.90-5.60 X10E6/uL HGB 11.4 L 13.0-17.0 g/dL Specimen: [id number] Received: 02/26/23 Status: WILIANDoe Leigh Num: [id number] Spec Type: Impression Subm Dr: Deniz Finney DO Tissues: PATHPER Procedures: PATHREVIEW Patient: Malik Ladd [id number] (Continued) Specimen: [id number] Received: 02/26/23 (Continued) CBC (Continued) Signed (signature on file) Monserrat Perez MD 02/26/23 1512 Specimen: [id number] Received: 02/26/23 Status: MARCELINO Joséparth Num: [id number] Spec Type: Impression Subm Dr: Deniz Finney DO Tissues: PATHPER Procedures: PATHREVIEW Patient: Malik Ladd [id number] (Continued) Specimen: [id number] Received: 02/26/23 (Continued) CBC (Continued) HCT 35.4 L 38.8-50.0 % MCV 94.1 83.5-101 fl MCH 30.4 27.5-35.2 pg MCHC 32.3 L 32.5-35.6 g/dL RDW 14.5 12.0-14.8 % Plt 148 L 150-450 x10E3/uL MPV 8.3 6.6-10.1 fl Neut % (Auto) 16.9 . % Lymp % (Auto) 79.6 . % [place] % (Auto) 2.5 . % Eos % (Auto) 0.8 . % Baso % (Auto) 0.2 . % NRBC% 0.2 0-0.5 /100 WBC Neut # (Auto) 3.4 1.8-7.7 x10E3/uL Lymph # (Auto) 16.2 H 1.00-4.8 x10E3/uL [place] # (Auto) 0.5 0.0-0.8 x10E3/uL Eos # (Auto) 0.2 0.0-0.45 x10E3/uL Baso# (Auto) 0.0 0.0-0.2 x10E3/uL Poik Slight [place] Slight Smudge Cells Moderate Plt Est Decreased Normal Plt Morphology Normal Normal Specimen: [id number] Received: 02/26/23 Status: MARCELINO Leigh Num: [id number] Spec Type: Impression Subm Dr: Deniz Finney DO Tissues: PATHPER Procedures: PATHREVIEW Patient: JuleeMalik Lisette [id number] (Continued) Signed (signature on file) William-Sami Perez MD 02/26/23 1512 Normal [facility] Leukocytes [#/volume] correc jewel for nucleated erythrocytes in Blood by Automated counOrdered By: Deniz Finney on 02-26-2023 WBC corrected for nucl RBC A uto (Bld) [#/Vol] 20.4 10*3/uL 4.1-10.5 [facility] Lymphocytes Auto (Bld) [#/Vo l]Ordered By: Deniz Finney on 02-26-2023 Lymphocytes (Bld) [#/Vol] 16.2 10*3/uL 1.00-4.8 [facility] Lymphocytes/100 WBC Auto (Bl d)Ordered By: Deniz Finney on 02-26-2023 Lymphocytes/100 WBC (Bld) 79.6 % . [facility] MCH Auto (RBC) [Entitic mass ]Ordered By: Deniz Finney on 02-26-2023 MCH (RBC) [Entitic mass] 30.4 pg 27.5-35.2 [facility] MCHC Auto (RBC) [Mass/Vol]Or dered By: Deniz Finney on 02-26-2023 MCHC (RBC) [Mass/Vol] 32.3 g/dL 32.5-35.6 [facility] MCV Auto (RBC) [Entitic vol] Ordered By: Deniz Finney on 02-26-2023 MCV (RBC) [Entitic vol] 94.1 fL 83.5-101 [facility] Monocytes Auto (Bld) [#/Vol] Ordered By: Deniz Finney on 02-26-2023 Monocytes (Bld) [#/Vol] 0.5 10*3/uL 0.0-0.8 [facility] Monocytes/100 WBC Auto (Bld) Ordered By: Deniz Finney on 02-26-2023 Monocytes/100 WBC (Bld) 2.5 % . [facility] Neutrophils Auto (Bld) [#/Vo l]Ordered By: Deniz Finney on 02-26-2023 Neutrophils (Bld) [#/Vol] 3.4 10*3/uL 1.8-7.7 [facility] Neutrophils/100 WBC Auto (Bl d)Ordered By: Deniz Finney on 02-26-2023 Neutrophils/100 WBC (Bld) 16.9 % . [facility] No Panel InformationOrdered By: Deniz Finney on 02-26-2023 Estimated GFR (CKD-EPI) > 60.0 mL/Min [facility] Creatinine Clearanc e (Chem N/A [facility] Nucleated erythrocytes [Pres ence] in Blood by Automated countOrdered By: Deniz Finney on 02-26-2023 Nucleated RBC Auto Ql (Bld) 0.2 /100{WBC} 0-0.5 [facility] Platelet adequacy [Presence] in Blood by Light microscopyOrdered By: Deniz Finney on 02-26-2023 Platelets LM Ql (Bld) Decreased Normal [facility] Platelet mean volume Auto (B ld) [Entitic vol]Ordered By: Deniz Finney on 02-26-2023 Platelet mean volume (Bld) [Entitic vol] 8.3 fL 6.6-10.1 [facility] Platelet morphology finding [Identifier] in BloodOrdered By: Deniz Finney on 02-26-2023 Platelet morphology finding Nom (Bld) Normal Normal [facility] Platelets Auto (Bld) [#/Vol] Ordered By: Deniz Finney on 02-26-2023 Platelets (Bld) [#/Vol] 148 10*3/uL 150-450 [facility] Poikilocytosis [Presence] in Blood by Light microscopyOrdered By: Deniz Finney on 02-26-2023 Poikilocytosis LM Ql (Bld) Slight [facility] Potassium [Moles/volume] in Serum or PlasmaOrdered By: Deniz Finney on 02-26-2023 Potassium [Moles/Vol] 4.5 mmol/L 3.5-5.1 [facility] RBC Auto (Bld) [#/Vol]Ordere d By: Deniz Zaid on 02-26-2023 RBC (Bld) [#/Vol] 3.76 10*6/uL 3.90-5.60 [facility] RBC morphologyOrdered By: Steve Finney on 02-26-2023 RBC morphology finding Nom (Bld) N/A [facility] Scan and CBCon 02-26-2023 Anisocytosis Ql (Bld) Slight Normal [facility] Comment on above: Performed By: #### S CAN CBC, BMP #### [facility] [address] Basophils (Bld) [#/Vol] 0.0 10*3/uL Normal 0.0-0.2 [facility] Comment on above: Performed By: #### S CAN CBC, BMP #### [facility] [address] Basophils/100 WBC (Bld) 0.2 % Normal . [facility] Comment on above: Performed By: #### S CAN CBC, BMP #### [facility] [address] Eosinophils (Bld) [#/Vol] 0.2 10*3/uL Normal 0.0-0.45 [facility] Comment on above: Performed By: #### S CAN CBC, BMP #### [facility] [address] Eosinophils/100 WBC (Bld) 0.8 % Normal . [facility] Comment on above: Performed By: #### S CAN CBC, BMP #### [facility] [address] [place] [address] [place] Erythrocyte distribution wid th (RBC) [Ratio] 14.5 % Normal 12.0-14.8 [facility] Comment on above: Performed By: #### S CAN CBC, BMP #### [facility] [address] [place] [address] [place] Hematocrit (Bld) [Volume fraction] 35.4 % Low 38.8-50.0 [facility] Comment on above: Performed By: #### S CAN CBC, BMP #### [facility] [address] Hemoglobin (Bld) [Mass/Vol] 11.4 g/dL Low 13.0-17. 0 [facility] Comment on above: Performed By: #### S CAN CBC, BMP #### [facility] [address] Lymphocytes (Bld) [#/Vol] 16.2 10*3/uL High 1.00-4.8 [facility] Comment on above: Performed By: #### S CAN CBC, BMP #### [address] Lymphocytes/100 WBC (Bld) 79.6 % Normal . [facility] Comment on above: Performed By: #### S CAN CBC, BMP #### [address] MCH (RBC) [Entitic mass] 30.4 pg Normal 27.5-35.2 [facility] Comment on above: Performed By: #### S CAN CBC, BMP #### [address] MCV (RBC) [Entitic vol] 94.1 fL Normal 83.5-101 [facility] Comment on above: Performed By: #### S CAN CBC, BMP #### [address] Mean Corpuscular HGB Conc 32.3 g/dL Low 32.5-35.6 [facility] Comment on above: Performed By: #### S CAN CBC, BMP #### [facility] [address] Monocytes (Bld) [#/Vol] 0.5 10*3/uL Normal 0.0-0.8 [facility] Comment on above: Performed By: #### S CAN CBC, BMP #### [facility] [address] Monocytes/100 WBC (Bld) 2.5 % Normal . [facility] Comment on above: Performed By: #### S CAN CBC, BMP #### [address] Neutrophils (Bld) [#/Vol] 3.4 10*3/uL Normal 1.8-7.7 [facility] Comment on above: Performed By: #### S CAN CBC, BMP #### [address] Neutrophils/100 WBC (Bld) 16.9 % Normal . [facility] Comment on above: Performed By: #### S CAN CBC, BMP #### [address] NRBC% 0.2 /100{WBC} Normal 0-0.5 [facility] Comment on above: Performed By: #### S CAN CBC, BMP #### [address] Platelet Estimate Decreased Normal Normal [facility] Comment on above: Performed By: #### S CAN CBC, BMP #### [facility] [address] [place] [address] Platelet mean volume (Bld) [Entitic vol] 8.3 fL Normal 6.6-10.1 [facility] Comment on above: Performed By: #### S CAN CBC, BMP #### [facility] [address] [place] [address] Platelet Morphology Normal Normal Normal [facility] Comment on above: Result Comment: PERF ORMED BY: [place] [address] PATHOLOGIST PEDAL ASSEMBLER ZEV PARRA M.D. Performed By: #### S CAN CBC, BMP #### [place] [address] [place] Platelets (Bld) [#/Vol] 148 10*3/uL Low 150-450 [facility] Comment on above: Performed By: #### S CAN CBC, BMP #### [facility] [address] [place] [address] [place] Poikilocytosis Slight Normal [facility] Comment on above: Performed By: #### S CAN CBC, BMP #### [facility] [address] RBC (Bld) [#/Vol] 3.76 10*6/uL Low 3.90-5.60 [facility] Comment on above: Performed By: #### S CAN CBC, BMP #### [facility] [address] Smudge Cells Moderate Normal [facility] Comment on above: Performed By: #### S CAN CBC, BMP #### [facility] [address] WBC (Bld) [#/Vol] 20.4 10*3/uL High 4.1-10.5 [facility] Comment on above: Performed By: #### S CAN CBC, BMP #### [facility] [address] Serum or plasma anion gap de terminationOrdered By: Deniz Finney on 02-26-2023 Anion gap [Moles/Vol] 9.6 mmol/L 6.0-15.0 [facility] Smudge cell detectionOrdered By: Deniz Finney on 02-26-2023 Smudge cells LM Ql (Bld) Moderate [facility] Sodium [Moles/volume] in Ser um or PlasmaOrdered By: Deniz Finney on 02-26-2023 Sodium [Moles/Vol] 139 mmol/L 136-145 [facility] Urea nitrogen [Mass/volume] in Serum or PlasmaOrdered By: Deniz Finney on 02-26-2023 Urea nitrogen [Mass/Vol] 32 mg/dL 7-25 [facility] WBC Auto (Bld) [#/Vol]Ordere d By: Deniz Finney on 02-26-2023 WBC (Bld) [#/Vol] 20.4 10*3/uL 4.1-10.5 [facility] Urology Office/Clinic Noteon 02-22-2023 Urology Office/Clinic Note Chief Complai nt 1 year F/U with PSA HPI Staff Pt here for a 1 year F/U with PSA Last OV was 02/05/22 Previous DX; Hx of prostate cancer S/p Prostatectomy done 10/2015. Gross hematuria ( Last OV when he had gross hematuria his PCP gave him Keflex for 14 days BID) He does not remember taking this Leaking of urine / Post- traumatic urethral stricture/ PSA 02/03/23- <0.13 01/30/22- 0.13 07/10/21- 0.017 12/25/20- 0.05 10/19/19- 0.05 10/22/18- 0.13 IPSS 17 PVR 78 Dysuria: sometimes burning started off and on for about 1 year Incomplete bladder emptying: not all the time Hematuria: a couple times, it lasts a day or two started a couple months this started Frequency: every hour Urgency: denies Nocturia: 4-5x nightly Stream: denies hesitation, sometimes his stream sprays, Started about a year ago Leaking: yes Post void dripping: yes Wearing pads/ Depends: denies Urge incontinence: denies Stress incontinence: _yes sneezing and coughing Incontinence without Sensory Awareness: denies Abdominal pain: denies Flank pain: denies Sexual complaints: _denies History of Present Illness staff HPI reviewed and agree. Review of Systems PHQ Score Initial Depression Screen Score: 0 SCORE no fever, chills, malaise, myalgia. no rash/lesions. no chest pain, palpitations, or SOB. no abdominal pain, nausea, vomiting. no unilateral calf swelling, redness, pain Physical Exam Vitals & Measurements BP: 132/78 HT: 71 in HT: 180 cm WT: 101.8 kg WT: 223.96 lb BMI: 31.42 General: nontoxic, NAD Mouth: moist mucosa Lungs: normal respiratory effort Cardio: regular rate, good distal perfusion Abdomen: nondistended, no suprapubic distention or tenderness, no CVA tenderness Neurologic: Grossly normal Skin: No rashes or suspicious lesions Assessment/Plan Former Dr. Read pt 1. Gross hematuria (R31.0: Gross hematuria) Reports he saw blood in his urine 3 times since August. Would last for a day or two. No hx of gross hematuria. UA today negative for blood and infection. CT AP w con 02/05/23 [facility] - no lesions or hydro. Discussed options. The patient is aware that a distinct etiology of the hematuria may not be clear upon conclusion of the workup. Will initiate hematuria workup to include upper urinary tract imaging (already completed), as well as evaluation of the urinary cells with urine cytology and possible a FISH test. A cystoscopy will be scheduled to rule out lower urinary tract pathology. The rationale for this workup has been discussed, and all questions have been answered. -Will schedule Cysto with possible UD. The procedure risks, benefits, details, and treatment alternatives have been discussed with the patient. These include bleeding, infection, recurrent scar in over 50%, need for repeat dilation or other procedures, no symptom relief with dilation, among others. Full informed consent has been obtained. Will order Local anesthesia. -urine sent for cytology 2. 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 Read. Did CIC in the past but has not had to do this in 2 years. Rarely has incomplete bladder emptying. IPSS 17, QoL 3. Continues to have burning and pain with urination. Has spray stream, ongoing. -sched cysto (see #1) w/ poss repeat UD if stricture found 3. History of prostate cancer (Z85.46: Personal history of malignant neoplasm of prostate) S/p prostatectomy 10/31/[address] Read. PSA 10/19/19 - <0.05 12/25/20 - <0.05 07/10/21 - 0.017 01/30/22 - <0.13 02/03/23 - <0.13 Discussed recent PSA level which remains stable and non-detectable. Will continue to monitor. 4. Lymphadenopathy, inguinal (R59.0: Localized enlarged lymph nodes) CT AP w con 02/05/23 [facility] - numerous large lymph nodes in both inguinal regions measuring up to 2.7cm on R and up to 3.3cm on L. No acute osseous changes. Reports he has had an elevated WBC count and has upcoming appts w/ hematology and general surgery. Follow-up With When Contact Information ERROL SLATER, JUDITH Sanders, URL [address] [place] [address] [phone] Additional Instructions: sched cysto w/ poss UD Patient Education Urethral Dilation Cystoscopy Documentation recorded by the scribtommy Irizarry accurately reflects the services(s) I performed and decisions made by me. Authenticated by Judith Norton PA-C on 02/22/2023 13:10:03. Annamarie Girard, personally scribed for Judith Norton PA-C on 02/11/2023 10:46:31. . Problem List/Past Medical History Ongoing Abdominal pain Abdominal tenderness Diabetes Erectile dysfunction after radical prostatectomy Frequency of urination Gross hematuria H/O prostate cancer History of prostate cancer Leaking of urine Lymphadenopathy, inguinal Nocturia Post-traumatic membranous urethral stricture Urgency of urination Histor (more content not included)... Normal [facility] Comment on above: Result Comment: Elec tronically Signed By: JUDITH NORTON PA-C\.br\Date and Time Signed: 02/22/23 13:13 EST\.br\Electronically Co-Signed By: Annamarie Irizarry\.br\Date and Time Co-Signed: 02/11/23 10:47 EST Urine Cytology ([facility])on 04-19-2022 Urine Cytology Diagnosis Info Invalid Interpretation Code [facility] Comment on above: Result Comment: A:Ur ine,Urine:Voided Interpretation - MicroScopic Description - Adequacy - Gross Description Site ID:A color Darryn fixative Alcohol Specimen designated Urine received in alcohol preservative and labeled with the patient?s name, consists of 100ml clear darryn fluid. Electronically signed by : on: 02/17/2023 11:45:36 Performed By: #### 1 [id number] #### [facility] [address] [place] [address] RAD - CT Reporton 02-12-2023 RAD - CT Report [id number] Normal [facility] Screenson 02-12-2023 Screens [id number] FF Normal [facility] Ambulatory Visit Summaryon 1 04-13-2022 Ambulatory Visit Summary MALIK LADD :1950 Visit Date:02/11/2023 Ambulatory Visit Instructions Your Diagnosis Gross hematuria Post-traumatic membranous urethral stricture History of prostate cancer Lymphadenopathy, inguinal Tests Performed Urnls Dip Stick Auto w/o Microscopy POC 09721 Your Care Team Attending Physician - JUDITH NORTON PA-C Primary Care Physician - NINO VALENTIN DO This Is Your Medications List Contact prescribing physician if questions or concerns glipiZIDE (glipiZIDE 10 mg Tab) metformin (metformin 500 mg Tab) Procedures Performed Cystourethroscopy with dilation of urethral stricture (11/06/2019), Cystourethroscopy with dilation of urethral stricture (02/28/2018), Cystourethroscopy with dilation of urethral stricture (03/06/2016), Optical urethrotomy (01/27/2016), Radical prostatectomy (10/31/2015), TRUS (transrectal ultrasound) guided cryoablation of prostate (09/16/2015), Appendectomy, Knee replacement, Tonsillectomy. Discharge Vitals Blood Pressure 132/78 Height 180 cm Height 71 in Weight 101.8 kg Weight 223.96 lb BMI 31.42 What to do next You Need to Schedule the Following Appointments Follow Up with JUDITH NORTON PA-C, URL When: Comments: sched cysto w/ poss UD Where: [address] [place] [address] [phone] Medications What How Much When Instructions Unchanged glipiZIDE (glipiZIDE 10 mg Tab) 1 Tablets By Mouth Every day Contact prescribing physician if questions or concerns Unchanged metformin (metformin 500 mg Tab) 2 Tablets By Mouth 2 times a day Contact prescribing physician if questions or concerns Test Results Urnls Dip Stick Auto w/o Microscopy POC 65807 (02/11/2023) Bilirubin Urine Dipstick - Negative Blood Urine Dipstick - Negative Glucose Urine Dipstick - 3+ 1000 mg/dl Ketones Urine Dipstick - Negative Leukocytes Urine Dipstick - Negative Nitrite Urine Dipstick - Negative Protein Urine Dipstick - Negative Specific [place] Urine Dipstick - 1.020 Urine Appearance Urine Dipstick - Clear Urine Color Urine Dipstick - Light yellow Urobilinogen Urine Dipstick - Normal 0.2-1 EU/dl pH Urine Dipstick - 5.5 Allergies No Known Allergies Problems Ongoing - Any problem that you are currently receiving treatment for. Abdominal pain Abdominal tenderness Diabetes Erectile dysfunction after radical prostatectomy Frequency of urination Gross hematuria H/O prostate cancer History of prostate cancer Leaking of urine Lymphadenopathy, inguinal Nocturia Post-traumatic membranous urethral stricture Urgency of urination Historical - Any problem that you are no longer receiving treatment for. Swollen R knee Patient Survey You may receive a survey via text or e-mail asking about your office visit. Please share your experience with us by completing your survey. We appreciate your feedback and thank you for choosing us for your care. Education Materials Urethral Dilation Urethral dilation is a procedure to stretch open (dilate) the urethra. The urethra is the tube that drains urine from the bladder out of the body. In women, the urethra opens above the vaginal opening. In men, the urethra opens at the tip of the penis. Urethral dilation is usually done to treat narrowing of the urethra (urethral stricture), which can make it difficult to pass urine. Urethral dilation widens the urethra so that you can pass urine normally. Urethral dilation is done through the urethral opening. There are no incisions made during the procedure. Tell a health care provider about: ? Any allergies you have. ? All medicines you are taking, including vitamins, herbs, eye drops, creams, and pcpb-fyv-gnoijqn medicines. ? Any problems you or family members have had with anesthetic medicines. ? Any blood disorders you have. ? Any surgeries you have had. ? Any medical conditions you have. ? Whether you are or may be . What are the risks? Generally, this is a safe procedure. However, problems may occur, including: ? Bleeding. ? Infection. ? A return of urethral stricture, which requires repeating the dilation procedure. ? Damage to the urethra, which may require reconstructive surgery. ? Allergic reactions to medicines. What happens before the procedure? Medicines Ask your health care provider about: ? Changing or stopping your regular medicines. This is especially important if you are taking diabetes medicines or blood thinners. ? Taking medicines such as aspirin and ibuprofen. These medicines can thin your blood. Do not take these medicines unless your health care provider tells you to take them. ? Taking blka-qzk-wtvruos medicines, vitamins, herbs, and supplements. General instructions ? Follow instructions from your health care provider about eating or drinking restrictions. ? Plan to have some (more content not included)... Normal [facility] Patient Educationon 02-12-20 Patient Education Urology Urethral Dilation Urethral dilation is a procedure to stretch open (dilate) the urethra. The urethra is the tube that drains urine from the bladder out of the body. In women, the urethra opens above the vaginal opening. In men, the urethra opens at the tip of the penis. Urethral dilation is usually done to treat narrowing of the urethra (urethral stricture), which can make it difficult to pass urine. Urethral dilation widens the urethra so that you can pass urine normally. Urethral dilation is done through the urethral opening. There are no incisions made during the procedure. Tell a health care provider about: ? Any allergies you have. ? All medicines you are taking, including vitamins, herbs, eye drops, creams, and efmw-pqg-fwkwbye medicines. ? Any problems you or family members have had with anesthetic medicines. ? Any blood disorders you have. ? Any surgeries you have had. ? Any medical conditions you have. ? Whether you are or may be . What are the risks? Generally, this is a safe procedure. However, problems may occur, including: ? Bleeding. ? Infection. ? A return of urethral stricture, which requires repeating the dilation procedure. ? Damage to the urethra, which may require reconstructive surgery. ? Allergic reactions to medicines. What happens before the procedure? Medicines Ask your health care provider about: ? Changing or stopping your regular medicines. This is especially important if you are taking diabetes medicines or blood thinners. ? Taking medicines such as aspirin and ibuprofen. These medicines can thin your blood. Do not take these medicines unless your health care provider tells you to take them. ? Taking zmfi-fpx-ctmcjfe medicines, vitamins, herbs, and supplements. General instructions ? Follow instructions from your health care provider about eating or drinking restrictions. ? Plan to have someone take you home from the hospital or clinic. ? If you will be going home right after the procedure, plan to have someone with you for 24 hours. ? Ask your health care provider what steps will be taken to help prevent infection. These may include: ? Washing skin with a germ-killing soap. ? Taking antibiotic medicine. What happens during the procedure? ? An IV may be inserted into one of your veins. ? You will be given one or more of the following medicines: ? A local anesthetic to numb your urethral opening. This will be applied as a gel that will also lubricate the urethral opening. ? A sedative to help you relax. ? A thin tube with a light and camera on the end (cystoscope) will be inserted into your urethra. ? Your urethra will be rinsed (irrigated) with a germ-free (sterile) water solution. ? Narrow parts of your urethra will be stretched open using a dilator tool. Your surgeon will start with a very thin dilator, then use wider dilators as needed. ? A thin tube with an inflatable balloon on the tip may be inserted into your urethra. The balloon may be inflated to help stretch your urethra open. ? Your urethra will be irrigated. The procedure may vary among health care providers and hospitals. What can I expect after the procedure? ? After the procedure, it is common to have: ? Burning pain when urinating. ? Blood in your urine. ? A need to urinate frequently. ? You will be asked to urinate before you leave the hospital or clinic. ? Your urine flow should improve within a few days. Follow these instructions at home: Medicines ? Take amyy-gij-ochlocr and prescription medicines only as told by your health care provider. ? If you were prescribed an antibiotic medicine, take it as told by your health care provider. Do not stop taking the antibiotic even if you start to feel better. ? Ask your health care provider if the medicine prescribed to you: ? Requires you to avoid driving or using heavy machinery. ? Can cause constipation. You may need to take these actions to prevent or treat constipation: ? Take mhya-bcn-oczwkld or prescription medicines. ? Eat foods that are high in fiber, such as beans, whole grains, and fresh fruits and vegetables. ? Limit foods that are high in fat and processed sugars, such as fried or sweet foods. General instructions ? Do not drive for 24 hours if you were given a sedative during your procedure. ? If you were sent home with a small, lubricated tube (catheter) to help keep your urethra open, follow your health care provider's instructions about how and when to use it. ? Drink enough fluid to keep your urine pale yellow. ? Return to your normal activities as told by your health care provider. Ask your health care provider what activities are safe for you. ? Keep all follow-up visits as told by your health care provider. This is important. Contact a health care provider if: ? Your urine is cloudy and smells bad. ? You develop new bleeding when you urinate. ? You pa (more content not included)... Normal [facility] Urine Cytology ([facility])on 04-13-2022 Method of Extraction Voided Normal [facility] Comment on above: Performed By: #### 1 [id number] #### [facility] [address] [place] [address] Number of Jars 1 Invalid Interpretation Code [facility] Comment on above: Performed By: #### 1 [id number] #### [facility] [address] [place] [address] Specimen Urine Normal [facility] Comment on above: Performed By: #### 1 [id number] #### [facility] [address] [place] [address] Type of Service Technical Only Normal [facility] Comment on above: Performed By: #### 1 [id number] #### [facility] [address] [place] [address] CT ABDOMEN PELVIS W IV CONTR Mari 02-05-2023 CT ABDOMEN PELVIS W IV CONTRAST CLINICAL HISTORY: Left inguinal adenopathy with elevated WBC count COMPARISON: NONE. TECHNIQUE: Multiple images axial images of the abdomen and pelvis were obtained after IV contrast and by mouth Lockyer contrast. Administration. 3-D sagittal and coronal reconstructions were performed. All CT scans at this facility use dose modulation, iterative reconstruction, and/or weight based dosing when appropriate to reduce radiation dose to as low as reasonably achievable. FINDINGS: The lung bases are within normal limits. The liver is normal in size, attenuation and enhancement without solid or cystic lesions. There is no intra or extrahepatic bile duct dilatation. The gallbladder contains a 12 mm calcified stone. There is no gallbladder wall thickening or surrounding inflammatory changes. The spleen is normal in size and attenuation without focal lesions. The pancreas is within normal limits. The adrenal glands are within normal limits. The kidneys are normal in size and position without solid lesions. There are prompt bilateral nephrograms after IV contrast administration with prompt excretion of contrast. There is no hydronephrosis or hydroureter. The aorta is normal in course and caliber. There is no retroperitoneal lymphadenopathy. There are no distended loops of bowel. There is no CT evidence of appendicitis. There are diverticula of the descending sigmoid colon without surrounding inflammation. The pelvic organs are within normal limits. There are surgical clips in the pelvis. There is no evidence of inguinal hernia. There are numerous enlarged lymph nodes in both inguinal regions measuring up to 2.7 cm in greatest diameter on the right and 3.3 cm on the left. There are no acute osseous changes. IMPRESSION: There are no acute intra-abdominal changes. There is marked bilateral inguinal lymphadenopathy. ELECTRONICALLY SIGNED BY: Louisa Scott MD Normal Not Available Lab Reportson 02-05-2023 Lab Reports [id number] IFF Normal [facility] VAS US LOWER EXTREMITY VENO US DUPLEX LEFTon 01-25-2023 VASC US LOWER EXTREMITY VENOUS DUPLEX LEFT VASC US LOWER EXTREMITY VENOUS DUPLEX LEFT : 01/25/2023 12:49 PM CLINICAL HISTORY: Edema left leg. Concerned about DVT. COMPARISON: None available. Grayscale, compression, color and waveform Doppler analysis of both lower extremity deep venous systems was performed with augmentation. FINDINGS: There is no deep venous thrombosis, abnormal masses, fluid collections or other findings of concern identified within the left lower extremity. In the left groin several lymph nodes are seen. The largest measures 3.1 cm. IMPRESSION: NO DVT IDENTIFIED IN THE LEFT LOWER EXTREMITY. Several lymph nodes are seen that could be reactive ELECTRONICALLY SIGNED BY: Rosie Monsalve DO Normal Not Available US Renal/Bladderon 2 US Renal/Bladder CLINICAL HISTORY: No cturia, hematuria, prostate cancer COMPARISON: NONE. TECHNIQUE: Grayscale images and Doppler images of the kidneys were obtained in multiple planes. FINDINGS: The kidneys are normal in size and position without solid lesions. There is no hydronephrosis or hydroureter. The right kidney measures 11.1 x 6.9 x 6.7cm. The left kidney measures 10.7 x 6.1 x 6.4cm. There is a 1.5 x 1.4 x 1.3 cm simple cyst in the lateral inferior portion of the left kidney. There is a second simple cyst in left kidney in the medial superior portion measuring 2.2 x 1.7 x 1.9 cm The urinary bladder is normal in size and sonographic appearance. Prevoid bladder volume is 45.7 mL IMPRESSION: THE STUDY IS WITHIN NORMAL LIMITS Report reported and signed by LOUISA SCOTT on 01/21/2022 1609 Normal [facility] Medica Specialist Complete Blood Count with Au to Diffon 07-10-2021 Erythrocyte distribution wid th (RBC) [Ratio] 13.2 % Normal 11.0-15.0 [facility] dical Specialist Comment on above: Performed By: #### C TOBI PALOMO CBCAD, LIPD #### [facility] [address] [place], [place] [id number] Hematocrit (Bld) [Volume fraction] 41.8 % Normal 38.5-50.0 [facility] dical Specialist Comment on above: Performed By: #### C TOBI PALOMO CBCAD LIPDeni #### [facility] [address] [place], [place] [id number] Hemoglobin (Bld) [Mass/Vol] 13.2 g/dL Normal 13.0-17. 1 [facility] [employer] Supervisor Comment on above: Performed By: #### C TOBI PALOMO CBCAD LIPDeni #### [facility] [address] [place], [place] [id number] MCH (RBC) [Entitic mass] 30.1 pg Normal 27.0-33.0 [facility] [employer] Hand[employer] Supervisor Comment on above: Performed By: #### C TOBI PALOMO CBCAD LIPDeni #### [facility] [address] [place], [place] [id number] MCHC (RBC) [Mass/Vol] 31.6 g/dL Low 32.0-36.0 [facility] Mail Handlers Supervisor Comment on above: Performed By: #### C TOBI PALOMO CBCAD, LIPD #### [facility] [address] [place], [place] [id number] MCV (RBC) [Entitic vol] 95 fL Normal 80-100 N [facility] Mail Handlers Supervisor Comment on above: Performed By: #### C MP, MDIFF, CBCAD, LIPD #### [facility] [address] [place], [place] [id number] Platelet mean volume (Bld) [Entitic vol] 11.00 fL Normal 7.50-12.50 [facility] Specialist Comment on above: Performed By: #### C TOBI PALOMO, CBCAD, LIPD #### [facility] [address] [place], [place] [id number] Platelets (Bld) [#/Vol] 177 10*3/uL Normal 140-400 [facility] Specialist Comment on above: Performed By: #### C TOBI PALOMO, CBCFLORENTINO, LIPD #### [facility] [address] [place], [place] [id number] RBC (Bld) [#/Vol] 4.39 10*6/uL Normal 4.20-5.80 [facility] Specialist Comment on above: Performed By: #### C TOBI PALOMO, CBCFLORENTINO, LIPD #### [facility] [address] [place], [place] [id number] RDW-SD 46.5 fL Normal 37.0-50.0 [facility] Specialist Comment on above: Performed By: #### C TOBI PALOMO, CBCFLORENTINO, LIPD #### [facility] [address] [place], [place] [id number] REFLEX Manual Differential Normal [facility] Specialist Comment on above: Performed By: #### C TOBI PALOMO, CBCAD, LIPD #### [facility] [address] [place], [place] [id number] WBC (Bld) [#/Vol] 13.7 10*3/uL High 3.8-11.0 [facility] Specialist Comment on above: Performed By: #### C TOBI PALOMO, CBCFLORENTINO, LIPD #### [facility] [address] [place], [place] [id number] Comprehensive Metabolic Pane nicho 07-10-2021 Albumin [Mass/Vol] 4.7 g/dL Normal 3.6-5.1 [facility] Specialist Comment on above: Performed By: #### C TOBI PALOMO, CBCAD, LIPD #### [facility] [address] [place], [place] [id number] Albumin/Globulin [Mass ratio] 2.4 {ratio} Normal 1.0-2 .5 [facility] Comment on above: Performed By: #### C TOBI PALOMO CBCAD, LIPDeni #### [facility] [address] [place], [place] [id number] ALP [Catalytic activity/Vol] 66 U/L Normal 40-129 [facility] Comment on above: Performed By: #### C TOBI PALOMO CBCAD, LIPD #### [facility] [address] [place], [place] [id number] ALT [Catalytic activity/Vol] 12 U/L Normal 9-46 [facility] Specialist Comment on above: Result Comment: 02/26 Female reference range changed. Performed By: #### C TOBI PALOMO CBCAD, LIPD #### [facility] [address] [place], [place] [id number] Anion gap [Moles/Vol] 19 mmol/L Normal 12-20 [facility] Comment on above: Result Comment: Effe ctive 04/03/2019 reference range changed. Performed By: #### C TOBI PALOMO CBCAD, LIPD #### [facility] [address] [place], [place] [id number] AST [Catalytic activity/Vol] 15 U/L Normal 10-40 [facility] Specialist Comment on above: Performed By: #### C TOBI PALOMO, ELOY, LIPD #### [facility] [address] [place], [place] [id number] Bilirubin [Mass/Vol] 0.71 mg/dL Normal 0.30-1.20 [facility] Comment on above: Performed By: #### C TOBI PALOMO CBCAD, LIPD #### [facility] [address] [place], [place] [id number] BUN/CREA 39 Ratio High 6-22 [facility] Specialist Comment on above: Performed By: #### C TOBI PALOMO CBCAD, LIPD #### [facility] [address] [place], [place] [id number] Calcium [Mass/Vol] 9.7 mg/dL Normal 8.6-10.2 [facility] Mail Hand[employer] Supervisor Comment on above: Performed By: #### TOBI Urbano MP, CBCAD, LIPD #### [facility] [address], [place] [id number] Chloride [Moles/Vol] 104 mmol/L Normal 98-107 [facility] Comment on above: Performed By: #### TOBI Urbano MP, ELOY, LIPD #### [facility] [address] [place], [place] [id number] CO2 [Moles/Vol] 19 mmol/L Low 20-31 [facility] Comment on above: Performed By: #### TOBI Urbano MP, CBCAD, LIPD #### [facility] [address] [place], [place] [id number] Creatinine [Mass/Vol] 0.7 mg/dL Normal 0.7-1.4 [facility] Comment on above: Performed By: #### TOBI Urbano MP, ELOY, LIPD #### [facility] [address] [place], [place] [id number] eGFRAA 136 mL/min/1.73m2 Normal >[address] [facility] Specialist Comment on above: Performed By: #### TOBI Urbano MP, ELOY, LIPD #### [facility] [address] [place], [place] [id number] eGFRNAA 112 mL/min/1.73m2 Normal >[address] [facility] Specialist Comment on above: Performed By: #### TOBI Urbano MP, ELOY, LIPD #### [facility] [address] [place], [place] [id number] Globulin (S) [Mass/Vol] 2.0 g/dL Normal 1.9-3.7 [facility] Comment on above: Performed By: #### TOBI Urbano MP, CBCAD, LIPD #### [facility] [address] [place], [place] [id number] Glucose [Mass/Vol] 210 mg/dL High 65-99 [facility] Supervisor Comment on above: Result Comment: For FASTING Glucose --- ADA reference ranges: Normal 65-99 mg/dl Prediabetes 100-125 Diabetes >/= 126 Performed By: #### C TOBI PALOMO, CBCFLORENTINO, LIPD #### [facility] [address] [place], [place] [id number] Potassium [Moles/Vol] 4.7 mmol/L Normal 3.5-5.5 [facility] Comment on above: Performed By: #### C TOBI PALOMO, ELOY, LIPD #### [facility] [address] [place], [place] [id number] Protein [Mass/Vol] 6.7 g/dL Normal 6.1-8.1 [facility] Specialist Comment on above: Performed By: #### C TOBI PALOMO, ELOY, LIPD #### [facility] [address] [facility] [place] [id number] Sodium [Moles/Vol] 137 mmol/L Normal 135-146 [facility] Supervisor Comment on above: Performed By: #### C TOBI PALOMO, ELOY, LIPD #### [facility] [address] [place], [place] [id number] Urea nitrogen [Mass/Vol] 27 mg/dL High 7-25 [facility] Specialist Comment on above: Performed By: #### C TOBI PALOMO, ELOY, LIPD #### [facility] [address] [place], [place] [id number] Lipid Panelon 07-10-2021 Cholesterol [Mass/Vol] 140 mg/dL Normal 125-200 No [facility] Specialist Comment on above: Result Comment: Low risk < 200mg/dL Borderline risk 201-239 mg/dl High risk > or equal to 240 Performed By: #### C TOBI PALOMO, ELOY, LIPD #### [facility] [address] [facility] [place] [id number] Cholesterol in HDL [Mass/Vol] 51 mg/dL Normal >40 [facility] Specialist Comment on above: Result Comment: High Cardiovascular Risk HDL <40 mg/dL Low Cardiovascular Risk HDL > or equal to 60 mg/dl Performed By: #### C TOBI PALOMO, CBCAD, LIPD #### [facility] [address] [facility] [place] [place] [id number] Cholesterol in LDL [Mass/Vol] 72 mg/dL Normal [facility] Comment on above: Result Comment: LDL ATP III CLASSIFICATION LDL less than 100 mg/dl Optimal LDL 100-129 mg/dl Near or above optimal LDL 130-159 Borderline high LDL 160-189 High LDL greater than 189 mg/dl Very High Performed By: #### C TOBI PALOMO CBCAD, LIPDeni #### [facility] [address] [place], [place] [id number] Cholesterol in VLDL [Mass/Vol] 17 mg/dL Normal [facility] Comment on above: Performed By: #### C TOBI PALOMO CBCAD, LIPD #### [facility] [address] [place], [place] [id number] Cholesterol.total/Cholestero l in HDL [Mass ratio] 3 {ratio} Normal [facility] Specialist Comment on above: Performed By: #### C TOBI PALOMO CBCAD, LIPD #### [facility] [address] [place], [place] [id number] Triglyceride [Mass/Vol] 83 mg/dL Normal 30-150 N [facility] Specialist Comment on above: Result Comment: TRIG ATPIII CLASSIFICATIONS TRIG less than 150 mg/dl Normal TRIG 150-199 mg/dl Borderline High TRIG 200-500 mg/dl High TRIG greather than 500 mg/dl Very High Performed By: #### C TOBI PALOMO CBCAD, LIPD #### [facility] [address] [place], [place] [id number] Manual Differentialon 2021 BAND 0.0 % Normal [facility] Specialist Comment on above: Performed By: #### C TOBI PALOMO CBCAD, LIPD #### [facility] [address] [place], [place] [id number] BANDABS 0.0 K/uL Normal [facility] Specialist Comment on above: Performed By: #### C TOBI PALOMO CBCAD, LIPDeni #### [facility] [address] [place], [place] [id number] BASO 0.0 % Normal [facility] Specialist Comment on above: Performed By: #### C TOBI PALOMO CBCAD, LIPDeni #### [facility] [address] [place], [place] [id number] BASOABS 0.0 K/uL Normal 0.0-0.2 [facility] Specialist Comment on above: Performed By: #### C TOBI PALOMO CBCAD, LIPD #### [facility] [address] [place], [place] [id number] EOS 2.0 % Normal [facility] Specialist Comment on above: Performed By: #### C TOBI PALOMO CBCAD, LIPD #### [facility] [address] [place], [place] [id number] EOSABS 0.3 K/uL Normal 0.0-0.5 [facility] Supervisor Comment on above: Performed By: #### C TOBI PALOMO CBCAD, LIPD #### [facility] [address] [place], [place] [id number] LYMPH 51.0 % Normal [facility] Specialist Comment on above: Performed By: #### C TOBI PALOMO CBCAD, LIPD #### [facility] [address] [place], [place] [id number] LYMPHABS 7.0 K/uL High 0.9-3.9 [facility] Supervisor Comment on above: Performed By: #### C TOBI PALOMO CBCAD, LIPD #### [facility] [address] [place], [place] [id number] LYMPHATYP 0.0 % Low 0.9-3.9 [facility] Supervisor Comment on above: Performed By: #### C TOBI PALOMO CBCAD, LIPD #### [facility] [address] [place], [place] [id number] MONO 7.0 % Normal [facility] Supervisor Comment on above: Performed By: #### C TOBI PALOMO CBCAD, LIPD #### [facility] [address] [place], [place] [id number] MONOABS 1.0 K/uL High 0.2-0.9 [facility] Supervisor Comment on above: Performed By: #### C TOBI PALOMO CBCAD, LIPD #### [facility] [address] [place], [place] [id number] PLT EST Adequate Normal [facility] Supervisor Comment on above: Performed By: #### C TOBI PALOMO CBCAD, LIPD #### [facility] [address] [place], [place] [id number] RBCMORPH Normal Normal [facility] Specialist Comment on above: Performed By: #### C TOBI PALOMO CBCAD, LIPD #### [facility] [address] [place], [place] [id number] SEG 40.0 % Normal [facility] Specialist Comment on above: Performed By: #### C TOBI PALOMO CBCAD, LIPDeni #### [facility] [address] [place], [place] [id number] SEGABS 5.5 K/uL Normal 1.5-7.8 [facility] Specialist Comment on above: Performed By: #### C TOBI PALOMO CBCAD, LIPDeni #### [facility] [address] [place], [place] [id number] WBC 13.7 K/uL High 3.8-11.0 [facility] Specialist Comment on above: Performed By: #### C TOBI PALOMO CBCAD, LIPDeni #### [facility] [address] [place], [place] [id number] Microalbumin (with Creat)on 07-10-2021 mALB <1.2 Low [facility] Specialist Comment on above: Result Comment: Unab le to calculate mALB/Crea ratio, mALB is <1.2 mg/dL mALB reference range not established. Performed By: #### m ALBC #### [facility] [address] [place], [place] [id number] UCREA 32 mg/dL Low 39-259 [facility] Specialist Comment on above: Performed By: #### m ALBC #### [facility] [address] [place], [place] [id number] PSA SCREEN (MEDICARE)on 06-27 TPSA <0.017 Normal [facility] Specialist Comment on above: Result Comment: PSA Test Method: ECLIA/Anni e 601 Performed By: #### P SA KEBEDE #### [facility] [address] [place], [place] [id number] Vital Signs Date Time Vital Sign Value Performing Clinician Facility 03-04-2023 12:09-0500 Diastolic blood pressure 68 mm[Hg] Devin Gonzalez MD Work Phone: [facility] 03-04-2023 12:09-0500 Systolic blood pressure 122 mm[Hg] Devin Gonzalez MD Work Phone: [facility] 03-04-2023 12:07-0500 Body height 180.3 cm Devin Gonzalez MD Work Phone: [facility] 03-04-2023 12:07-0500 Body mass index (BMI) [Ratio] 30.68 kg/m2 Devin Gonzalez MD Work Phone: [facility] 03-04-2023 12:07-0500 Body weight 99.79 kg Devin Gonzalez MD Work Phone: [facility] 03-04-2023 12:07-0500 Heart rate 54 /min Devin Gonzalez MD Work Phone: [facility] 02-11-2023 10:00-0500 Blood Pressure Location JUDITH ERROL [facility] 02-11-2023 10:00-0500 Diastolic blood pressure 78 mm[Hg] JUDITH ERROL [facility] 02-11-2023 10:00-0500 Systolic blood pressure 132 mm[Hg] JUDITH ERROL [facility] 02-05-2022 13:13-0500 Blood Pressure Location JUDITH ERROL [facility] 02-05-2022 13:13-0500 Diastolic blood pressure 76 mm[Hg] JUDITH ERROL [facility] 02-05-2022 13:13-0500 Heart rate 63 /min JUDITH ERROL [facility] 02-05-2022 13:13-0500 Respiratory rate 16 /min JUDITH NORTON [facility] 02-05-2022 13:13-0500 Systolic blood pressure 134 mm[Hg] JUDITH NORTON [facility] Encounters Encounter Date Encounter Type Care Provider Facility Start: 04-08-2023 ambulatory Roxanne Haddad Facility:[facility] Start: 03-11-2023 End: 03-12-2023 ambulatory Darryl Escalera Facility:[facility] Start: 03-08-2023 End: 03-08-2023 ambulatory Cornel Chowdary Facility:[facility] Start: 03-08-2023 Telephone encounter Chandrika Parker Hematology/Oncology Comment on above: Results; Orders Start: 03-04-2023 End: 03-04-2023 ambulatory NINO VALENTIN Facility:[facility] Start: 03-04-2023 End: 03-04-2023 ambulatory [facility] Start: 03-04-2023 End: 03-04-2023 Encounter for other preprocedural examination [facility] Start: 03-04-2023 End: 03-04-2023 Office outpatient new 60 minutes Devin Gonzalez MD Work Phone: [facility] Comment on above: CHB (complete heart block) (CMS/HCC); Angina pectoris, unstable (CMS/HCC); Abnormal EKG; Mixed hyperlipidemia; Type 2 diabetes mellitus with other circulatory complications (CMS/HCC); Preoperative clearance; Class 1 obesity without serious comorbidity with body mass index (BMI) of 30.0 to 30.9 in adult, unspecified obesity type; Fatigue, unspecified type; Preoperative testing; 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) Start: 03-04-2023 End: 03-04-2023 Patient encounter status Devin Gonzalez MD Work Phone: [facility] Work Phone: Start: 03-04-2023 End: 03-04-2023 Preoperative state Devin Gonzalez MD Work Phone: [facility] Work Phone: Start: 02-26-2023 End: 02-26-2023 ambulatory Nino Valentin Facility:[facility] Start: 02-26-2023 End: 02-26-2023 ambulatory DO Nino Huttonick Work Phone: [facility] Work Phone: Start: 02-26-2023 End: 02-26-2023 Patient encounter procedure DO Nino Valentin Work Phone: [facility] Work Phone: Start: 02-23-2023 End: 02-23-2023 ambulatory DENIZ FINNEY Not Available Start: 02-11-2023 End: 02-12-2023 ambulatory JUDITH NORTON Facility:[facility] Start: 02-11-2023 End: 02-12-2023 ambulatory JUDITH NORTON Facility:[facility] Start: 02-11-2023 End: 02-11-2023 Lab Drop off JUDITH NORTON [facility] Start: 02-11-2023 End: 02-11-2023 Patient encounter procedure JUDITH NORTON [facility] Start: 02-09-2023 End: 02-09-2023 ambulatory DAHLIA VALENTIN Not Available Start: 02-05-2023 End: 02-06-2023 ambulatory DAHLIA VALENTIN Not Available Start: 02-05-2022 End: 02-05-2022 Patient encounter procedure JUDITH NORTON [facility] Start: 02-03-2022 End: 02-03-2022 Patient encounter procedure JUDITH NORTON [facility] Start: 01-30-2022 End: 01-31-[address] ATILIO READ JR Facility:[facility] Procedures Date Procedure Procedure Detail Performing Clinician Start: 03-04-2023 ECG 12-LEAD DEVIN ELLIS Start: 03-04-2023 Ecg routine ecg w/le ast 12 lds w/i&r Devin Gonzalez MD Work Phone: Start: 01-25-2023 Lipid 1996 panel - S mariluz or Plasma Devin Gonzalez MD Work Phone: Start: 01-30-[address] ATILIO READ JR Comment on above: Performed By: #### P SAD #### [facility] [address] [place] [address] Dr. Celi Perez Start: 11-06-2019 Cystourethroscopy wi th dilation of urethral stricture JUDITH NORTON Start: 02-28-2018 Cystourethroscopy wi th dilation of urethral stricture JUDITH NORTON Start: 03-06-2016 Cystourethroscopy wi th dilation of urethral stricture JUDITH NORTON Comment on above: 07/20/16 , 01/11/17, 02/28/18 Start: 01-27-2016 Optical urethrotomy DONYA NORTON Comment on above: 04/30/16 Start: 10-31-2015 Radical prostatectomy J SHERITA NORTON Start: 09-16-2015 Ultrasonography guid ed transrectal cryoablation of prostate JUDITH NORTON Appendectomy JUDITH NORTON Arthroplasty of knee PAM NORTON Tonsillectomy JUDITH NORTON Plan of Treatment Date Care Activity Detail Author Start: 01-26-2028 Lipid 1996 panel - Serum or Plasma Lipid Screening [facility] Start: 03-04-2026 Diabetes Screening Diabetes Screenin g [facility] Start: 01-26-2024 Lipid panel Lipid Panel [facility] Start: 01-26-2024 Urine screening for protein Diabetes: Urine Protein Screening [facility] Start: 06-22-2023 End: 06-22-2023 Patient encounter procedure 06/22/2023 11:10 AM EDT Office Visit [facility] [address] [place] [address] [address] [place] [address] Devin Gonzalez MD [address] [facility] [address] [place] [address] [facility] Start: 03-18-2023 End: 03-18-2023 Clinical Support 03/18/2023 1:30 PM EST Clinical Support [address] [place] [id number] [facility] Start: 03-14-2023 COVID-19 Vaccine (4 - Pfizer series) COVID-19 Vaccine (4 - Pfizer series) [facility] Start: 03-08-2023 End: 06-07-2023 FISH FOR CLL FISH FOR CLL Lab Routine Lymphocytosis CLL (chronic lymphocytic leukemia) (HCC) Expected: 03/08/2023, Expires: 06/07/2023 [facility] Work Phone: Comment on above: Expected: 03/08/2023 , Expires: 06/07/2023 Start: 03-04-2023 End: 03-04-2024 Basic metabolic 2000 panel - Serum or Plasma Basic Metabolic Panel Lab Routine CHB (complete heart block) (CMS/HCC) Preoperative testing Expected: 03/04/2023 (Approximate), Expires: 03/04/2024 [facility] Service Area Work Phone: Comment on above: Expected: 03/04/2023 (Approximate), Expires: 03/04/2024 Start: 03-04-2023 End: 03-04-2024 CBC panel - Blood by Automated count CBC Lab Routine CHB (complete heart block) (CMS/HCC) Preoperative testing Expected: 03/04/2023 (Approximate), Expires: 03/04/2024 [facility] Work Phone: Comment on above: Expected: 03/04/2023 (Approximate), Expires: 03/04/2024 Start: 03-04-2023 End: 03-04-2024 Urinalysis microscopic panel - Urine Qualitative by Automated Microscopic Only, Urine Lab Routine CHB (complete heart block) (CMS/HCC) Preoperative testing Expected: 03/04/2023 (Approximate), Expires: 03/04/2024 [facility] Work Phone: Comment on above: Expected: 03/04/2023 (Approximate), Expires: 03/04/2024 Start: 03-04-2023 End: 03-04-2024 XR Chest 2 Views XR chest 2 views Imaging Routine CHB (complete heart block) (CMS/HCC) Preoperative testing Expected: 03/04/2023, Expires: 03/04/2024 [facility] Work Phone: Comment on above: Expected: 03/04/2023 , Expires: 03/04/2024 Start: 11-27-2022 Influenza vaccination Influenza Vacc ine (#1) [facility] Start: 03-29-2022 Advance Directive Discussion Advance Directive Discussion [facility] Start: 03-29-2022 Depression Assessment Depression Ass essment [facility] Start: 2013 Abdominal aortic aneurysm screening Abdominal Aortic Aneurysm (AAA) Screening [facility] Start: 2008 RSV Vaccine (1 - 1-d ose 60+ series) RSV Vaccine (1 - 1-dose 60+ series) [facility] Start: 1998 Shingrix Vaccine (1 of 2) Shingrix Vaccine (1 of 2) [facility] Start: 1998 Zoster Vaccines (1 of 2) Zoste r Vaccines (1 of 2) [facility] Start: 1993 Cologuard (FIT-DNA) Cologuard (FIT-D NA) [facility] Start: 1993 Colonoscopy Colonoscopy [facility] Start: 1993 Colorectal Cancer Screening Colorectal Cancer Screening [facility] Start: [address] Colonography [facility] Start: 1993 Fecal Occult Blood Fecal Occult Bloo d [facility] Start: 1993 [facility] Start: 1970 DTaP/Tdap/Td Vaccine s (1 - Tdap) DTaP/Tdap/Td Vaccines (1 - Tdap) [facility] Start: 06-10-1967 Urine microalbumin profile DTaP,Tdap,Td Vaccine (1 - Tdap) [facility] Start: 1966 Hepatitis C screening Hepatitis C [facility] Start: 1966 Hepatitis C Screening Hepatitis C [facility] Start: 1958 Diabetic foot examination Diabetes: Foot Exam [facility] Start: 1958 Glaucoma screening Diabetes: R etinopathy Screening [facility] Start: 1948 Hemoglobin A1c measurement Diabetes: Hemoglobin A1C [facility] Start: 1948 Medicare Annual Well ness Visit Medicare Annual Wellness Visit (AWV) [facility] Start: 1948 Screening for malign ant neoplasm of colon [facility] End: 04-06-[address] attenuation skull base mid-thigh NM PET/CT SKULL-THIGH INITIAL Radiology Routine Lymphocytosis CLL (chronic lymphocytic leukemia) (HCC) 1 Occurrences starting 03/08/2023 until 04/06/2024 [facility] Work Phone: Comment on above: 1 Occurrences starti ng 03/08/2023 until 04/06/2024 [facility] Immunizations Immunization Date Immunization Notes Care Provider Fa cilimuriel 02-14-2022 SARS-CoV-2 (COVID-19 ) [id number] JUDITH NORTON [facility] 02-04-2022 COVID-19 (Pfizer) Bivalent Booster, Age 12Y+ DO Nino Valentin Work Phone: [facility] 08-12-2021 SARS-CoV-2 mRNA (ollpmmqvfsi-dyao-xleyez e) vaccine JUDITH NORTON [facility] 08-02-2021 COVID-19 (Pfizer) DO Nino Valentin Work Phone: [facility] 02-04-2021 influenza virus vacc ine, unspecified formulation JUDITH NORTON [facility] 02-04-2021 SARS-CoV-2 (COVID-19 ) mRNA BNT-162b2 vax JUDITH NORTON [facility] 07-09-2020 pneumococcal polysaccharide vaccine, 23 valent JUDITH NORTON [facility] 06-28-2020 SARS-CoV-2 (COVID-19 ) mRNA BNT-162b2 vax JUDITH ERROL [facility] 06-03-2020 SARS-CoV-2 (COVID-19 ) mRNA BNT-162b2 vax JUDITH ERROL [facility] Comment on above: Result Comment: 2021: [id number] 06-19-2019 pneumococcal conjuga te vaccine, 13 valent JUDITH ERROL [facility] Payers Date Payer Category Payer Self-pay 2004 Medicare [id number] 1959 Medicare [id number] 1948 Unknown [id number] 2.16.84 [id number] 1948 Unknown [id number] 2.16.8 [id number] 1948 Unknown [id number] 2.16.8 [id number] 1948 Unknown [id number] 2.16.8 [id number] 1948 Unknown [id number] [id number] 1948 Unknown [id number] [id number]. [id number] 1948 Unknown [id number] [id number]. [id number] 1948 Unknown [id number] 2.16.8 [id number] Unknown [facility] Health Claims [id number] Unknown [id number] 2.16.8 [id number] Unknown [id number] 2.16.8 [id number] Unknown [id number] 2.16.8 [id number] Social History Date Type Detail Facility Start: 12-31-2020 End: 03-04-2023 Tobacco smoking status Ex-smoker (finding) [facility] Start: 03-04-2023 Sex Assigned At Male F [facility] Tobacco quit 30 years ag o Tobacco Use:. Cigars [facility] [employer] Comment on above: pt quit smoking 30+ yrs ago Tobacco smoking status No Smoking Status Entered [facility] [employer] Start: 1950 Sex Assigned At Male [facility] History of tobacco use Current smoker [facility] Work Phone: History of tobacco use Cigarette Smoker [facility] Work Phone: Start: 03-04-2023 Alcohol intake Lifetime non-drinker (finding) [facility] Work Phone: Start: 03-04-2023 History of Social function [facility] Work Phone: Start: 1950 Sex Assigned At Not on file [facility] Work Phone: Start: 02-22-2023 End: 03-04-2023 Exposure to SARS-CoV-2 (event) Not sure [facility] Tobacco smoking status NHIS Tobacco smoking consumption unknown [facility] National Score (1-100), lower number is lower risk 74 [facility] Functional Status Date Assessment Result Facility 02-11-2023 Functional Status N/A [facility] 02-05-2022 Functional Status N/A [facility] Clinical Notes 02-05-2022 to 03-08-2023 Telephone Encounter - Fabiola Elliott APRN.CNP - 03/08/2023 3:10 PM ESTTelephone Encounter - Chandrika Root RN - 03/08/2023 2:47 PM Jose Gonzalez MD - 03/04/2023 12:10 PM EST Note Date & Type Note Facility 03-08-2023 Miscellaneous Notes Signed. Fabiola Elliott APRN.CNP VM left with [facility] message and recommendations. Pt asked to call back to schedule. BRM: Orders pended; please review and sign Chandrika Root RN ----- Message from Alex Barajas MD sent at 03/08/2023 2:40 PM EST ----- Please inform the patient that his peripheral blood flow cytometry is consistent with CLL. I do not believe a lymph node biopsy is necessary at this time. If in agreement please arrange for PET scan and CLL FISH analysis to be done at [facility] prior to his return visit. Huseyin B documented in this encounter [facility] 03-04-2023 History of Present illness Narrative Cardiology Consultation- New Consult Reason for referral: [id number] rhythm HPI: Malik Ladd is a 72 y.o. male who is being seen at the request of general surgery prior to surgery to remove lymph nodes in the groin area for diagnostic purposes. The patient has history of coronary disease and previous cardiac catheterization [place] [address] Figueroa revealing moderate disease not exceeding 50% and managed medically. He is diabetic for the last several years and hyperlipidemia he is non-smoker, he came with his . The patient had presurgical EKG which was abnormal showing A-V dissociation with junctional escape rhythm. Heart rate 54 bpm. He denies any syncope or presyncope and has no dizziness. He has generalized fatigue with no weight loss. He has no cough but he is having symptoms of chest pain suggestive angina pectoris. His rhythm is irregular and his lung examination was normal he has no lower extremity edema. The finding of a cardiac catheterization in 2017 was reviewed with the patient and his current condition was discussed at length with him and his . Assessment/recommendations: 1-patient need cardiac clearance prior to removal of lymph nodes from the groin area bilaterally for diagnostic and therapeutic purposes. The patient is not ready for surgery without stabilizing him from the cardiac standpoint. 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 This caused the patient significant fatigue and lack of stamina. Patient is currently not on medical therapy to cause conduction abnormalities. He does have underlying coronary disease but no prior interventions. The patient would likely benefit from AV sequential pacemaker before surgery. This will be done after we perform invasive cardiac workup next week with cardiac catheterization due to angina. 3-moderate coronary disease by cardiac care physician 2017 not exceeding 50% managed medically with recent development of symptoms of chest pain suggestive angina pectoris. The patient will undergo diagnostic cardiac catheterization before we embark on placing a pacemaker and for surgery. He is agreeable to that. 4-diabetes on medical therapy stable 5-hyperlipidemia on high intensity statin 6-class I obesity, after surgery patient will be able to do more activities trying to lose weight Past Medical History: He has no past medical history on file. Surgical History: He has a past surgical history that includes Appendectomy; Colonoscopy; Lumbar fusion; Prostatectomy; and Total knee arthroplasty. Family History: Family History Problem Relation Name Age of Onset Congenital heart disease Mother Breast cancer Sister Atrial fibrillation Sister Lung cancer Sister Social History: Social History Tobacco Use Smoking status: Former Types: Cigarettes Smokeless tobacco: Not on file Substance Use Topics Alcohol use: Never Allergies: Meloxicam and Tramadol Current Medications: Current Outpatient Medications: aspirin 81 mg EC tablet, Take 1 tablet (81 mg) by mouth once daily., Disp: , Rfl: atorvastatin (Lipitor) 20 mg tablet, Take 1 tablet (20 mg) by mouth once daily., Disp: , Rfl: empagliflozin (Jardiance) 10 mg, Take 1 tablet (10 mg) by mouth once daily., Disp: , Rfl: glipiZIDE (Glucotrol) 5 mg tablet, Take 1 tablet (5 mg) by mouth once daily., Disp: , Rfl: insulin degludec (Tresiba FlexTouch U-100) 100 unit/mL (3 mL) injection, Inject 20 Units under the skin once daily., Disp: , Rfl: metFORMIN (Glucophage) 1,000 mg tablet, Take 1 tablet (1,000 mg) by mouth twice a day., Disp: , Rfl: multivitamin with minerals tablet, Take 1 tablet by mouth once daily., Disp: , Rfl: triamcinolone (Kenalog) 0.1 % cream, Apply 1 Application topically 2 times a day as needed for irritation or rash., Disp: , Rfl: Vitals: Visit Vitals BP 122/68 (BP Location: Left arm, Patient Position: Sitting) Pulse 54 Ht 1.803 m (5' 11 ) Wt 99.8 kg (220 lb) BMI 30.68 kg/m Smoking Status Former BSA 2.24 m ROS As noted above in the HPI, 11 point review of system otherwise was unremarkable Objective Physical Exam Constitutional: Appearance: Normal appearance. He is normal weight. HENT: Nose: Nose normal. Neck: Vascular: No carotid bruit. Cardiovascular: Rate and Rhythm: Normal rate. Pulses: Normal pulses. Heart sounds: Normal heart sounds. Pulmonary: Effort: Pulmonary effort is normal. Abdominal: General: Bowel sounds are normal. Palpations: Abdomen is soft. Genitourinary: Rectum: Normal. Musculoskeletal: General: Normal range of motion. Cervical back: Normal range of motion. Right lower leg: No edema. Left lower leg: No edema. Skin: General: Skin is warm and dry. Neurological: General: No focal deficit present. Mental Status: He is alert. Psychiatric: Mood and Affect: Mood normal. Behavior: Behavior normal. Thought Content: Thought content normal. Judgment: Judgment normal. Assessment and Plan: 1. CHB (complete heart block) (CMS/HCC) Basic Metabolic Panel CBC Referral to Pacemaker Clinic and Follow Up XR chest 2 views Follow Up In Cardiology Follow Up In Cardiology Microscopic Only, Urine 2. Angina pectoris, unstable (CMS/HCC) 3. Abnormal EKG 4. Mixed hyperlipidemia 5. Type 2 diabetes mellitus with other circulatory complications (CMS/HCC) 6. Preoperative clearance ECG 12 Lead 7. Class 1 obesity without serious comorbidity with body mass index (BMI) of 30.0 to 30.9 in adult, unspecified obesity type 8. Fatigue, unspecified type 9. Preoperative testing Basic Metabolic Panel CBC XR chest 2 views Microscopic Only, Urine 10. 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) EKG done in office today documented in this encounter [facility] [place] Work Phone: 03-04-2023 Instructions Raquel Smith LPN - 03/04/2023 12:10 PM EST Please bring all medicines, vitamins, and herbal supplements with you when you come to the office. Prescriptions will not be filled unless you are compliant with your follow up appointments or have a follow up appointment scheduled as per instruction of your physician. Refills should be requested at the time of your visit. Cardiac catherization on Wednesday with Dr. Chowdary Then will set up for pacemaker insertion. documented in this encounter [facility] [place] Work Phone: 03-04-2023 Note HNO ID: [id number] Author: Alex Barajas MD Service: ? Author Type: Physician Type: Progress Notes Filed: 03/05/2023 10:32 AM Note Text: PATIENT NAME: Malik Ladd DATE: 03/04/2023 PRIMARY CARE PHYSICIAN: Nino Valentin, OTHER PHYSICIANS: Dr. Finney, Dr. Rios, Dr. Escalera HPI: This is a 72 year old male referred for evaluation of lymphocytosis and lymphadenopathy. The patient recently presented to his PCP with several complaints including night sweats, weight loss, and palpable lymph nodes. Labs obtained 01/25/2023 included a CBC which revealed significant lymphocytosis with a total WBC of 22.4. CT scans obtained 02/08/2023 revealed bilateral inguinal adenopathy. The patient was referred to surgery, and recommendations were to proceed with an excisional biopsy. Apparently preop testing revealed evidence of heart disease, and initial plans for surgery were canceled. The patient subsequently was referred to cardiology, and now is scheduled to undergo a cardiac catheterization followed by pacemaker placement. Past medical history is significant for type 2 diabetes and previously resected prostate cancer. Review of systems significant for weight loss of 15 pounds in the past 1 month. Persistent night sweats for the past 1 month. No unusual weight loss. No unusual pain. He has chronic leg swelling ever since prostate cancer surgery. No difficulties with urination. The patient has a history of smoking, quit 20 years ago. Does not drink significantly. 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 No current facility-administered medications for this visit. ALLERGIES: ALLERGIES Not on File PAST MEDICAL HISTORY: PAST MEDICAL HISTORY Diagnosis Date Leukocytosis PAST SURGICAL HISTORY: No past surgical history on file. FAMILY HISTORY: No family history on file. SOCIAL HISTORY: COMPLETE REVIEW OF SYSTEMS: As above. PHYSICAL EXAM: BP 127/68 Pulse 62 Temp 36.1 ?C (97 ?F) (Temporal) Resp 16 Ht 180.3 cm (5' 11 ) Wt 99.8 kg (220 lb) SpO2 97% BMI 30.68 kg/m? GENERAL EXAM: Well developed/well nourished; in no acute distress. SKIN: Negative for lesions, rashes, or ulcers on the upper and lower extremities and face. Negative for palpations/nodules, purpura, and ecchymosis. EENT: Negative for conjunctiva, mucosal pallor, JVD, LAP, thyromegaly, and glossitis. Supple AND PERRL. EXTREMITIES: Negative for cyanosis, clubbing, and crepitus. LUNGS: Negative to auscultation, respiratory effort, and percussion. CARDIOVASCULAR: Regular rate. Negative for murmurs/S3S4/abnormal sounds, edema, and carotid bruits. ABDOMEN: Negative for masses, hernia, and spleen/liver abnormalities. RECTAL: Not done PSYCHIATRIC: Negative for mood/affect changes, recent AND remote memory changes, and judgement and insight. NEUROLOGICAL: Alert, oriented x person, place, time. Cranial nerves 2-12 intact. Sensory for pain, light touch, vibration intact on all 4 extremities. Reflexes symmetric for biceps/brachioradial/patella/achi lles. MUSCULOSKELETAL: 1-2+ bilateral lower extremity swelling from the knees down. Lymph nodes palpable in the inguinal area measuring 2 to 3 cm on the right, 3 to 4 cm on the left. Shotty lymph nodes palpable in the right axilla. LABS: Hemoglobin (g/dL) Date Value 03/04/2023 11.4 Hematocrit (%) Date Value 03/04/2023 35.7 WBC (k/uL) Date Value 03/04/2023 21.65 Platelet Count (k/uL) Date Value 03/04/2023 148 RADIOLOGY/OTHER STUDIES: 02/08/2023 CT abdomen/pelvis ([facility]) Numerous enlarged lymph nodes in both inguinal regions measuring up to 2.7 cm on the right, and 3.3 cm on the left. The liver is normal in size. The spleen is normal size without focal lesions. No retroperitoneal lymphadenopathy. ASSESSMENT/PLAN: 1. Lymphocytosis and lymphadenopathy - suspected lymphoproliferative disorder - ICD9: 288.61, ICD10: D72.820 (primary diagnosis) December 2022 the patient presented with night sweats and weight loss. On exam was found to have significant bilateral inguinal adenopathy. Labs reveal lymphocytosis with mild anemia and thrombocytopenia. Most likely the patient has an underlying lymphoproliferative disorder. Differential diagnosis includes CLL versus low-grade lymphoma. Will check additional labs today including peripheral blood flow cytometry. Based on results further testing will be considered including PET scan, lymph node biopsy +/- bone marrow biopsy. When the diagnosis is confirmed treatment options will be discussed. I will schedule a temporary return visit here in 2 weeks. The patient will follow-up with his other physicians as scheduled. 2. History of prostate cancer - ICD9: V10.46, ICD10: Z85.46 Diagnosed 2016. Status post radical prostatectomy per Dr. Read. No evidence of recurrence since. Continue follow- (more content not included)... [facility] 02-11-2023 Evaluation + Plan note Diagnostic Tests PendingUrine Cytology ([facility]) 02/11/23 [facility] 02-11-2023 Hospital Discharge instructions Patient Education 02/11/2023 10:44:00 Urethral Dilation Urethral Dilation Urethral dilation is a procedure to stretch open (dilate) the urethra. The urethra is the tube that drains urine from the bladder out of the body. In women, the urethra opens above the vaginal opening. In men, the urethra opens at the tip of the penis. Urethral dilation is usually done to treat narrowing of the urethra (urethral stricture), which can make it difficult to pass urine. Urethral dilation widens the urethra so that you can pass urine normally. Urethral dilation is done through the urethral opening. There are no incisions made during the procedure. Tell a health care provider about: Any allergies you have. All medicines you are taking, including vitamins, herbs, eye drops, creams, and ybjt-jlb-jmuqiqr medicines. Any problems you or family members have had with anesthetic medicines. Any blood disorders you have. Any surgeries you have had. Any medical conditions you have. Whether you are or may be . What are the risks? Generally, this is a safe procedure. However, problems may occur, including: Bleeding. Infection. A return of urethral stricture, which requires repeating the dilation procedure. Damage to the urethra, which may require reconstructive surgery. Allergic reactions to medicines. What happens before the procedure? Medicines Ask your health care provider about: Changing or stopping your regular medicines. This is especially important if you are taking diabetes medicines or blood thinners. Taking medicines such as aspirin and ibuprofen. These medicines can thin your blood. Do not take these medicines unless your health care provider tells you to take them. Taking rwuc-shf-fbcouur medicines, vitamins, herbs, and supplements. General instructions Follow instructions from your health care provider about eating or drinking restrictions. Plan to have someone take you home from the hospital or clinic. If you will be going home right after the procedure, plan to have someone with you for 24 hours. Ask your health care provider what steps will be taken to help prevent infection. These may include: ?Washing skin with a germ-killing soap. ?Taking antibiotic medicine. What happens during the procedure? An IV may be inserted into one of your veins. You will be given one or more of the following medicines: ?A local anesthetic to numb your urethral opening. This will be applied as a gel that will also lubricate the urethral opening. ?A sedative to help you relax. A thin tube with a light and camera on the end (cystoscope) will be inserted into your urethra. Your urethra will be rinsed (irrigated) with a germ-free (sterile) water solution. Narrow parts of your urethra will be stretched open using a dilator tool. Your surgeon will start with a very thin dilator, then use wider dilators as needed. A thin tube with an inflatable balloon on the tip may be inserted into your urethra. The balloon may be inflated to help stretch your urethra open. Your urethra will be irrigated. The procedure may vary among health care providers and hospitals. What can I expect after the procedure? After the procedure, it is common to have: ?Burning pain when urinating. ?Blood in your urine. ?A need to urinate frequently. You will be asked to urinate before you leave the hospital or clinic. Your urine flow should improve within a few days. Follow these instructions at home: Medicines Take inaf-cdg-irpsobc and prescription medicines only as told by your health care provider. If you were prescribed an antibiotic medicine, take it as told by your health care provider. Do not stop taking the antibiotic even if you start to feel better. Ask your health care provider if the medicine prescribed to you: ?Requires you to avoid driving or using heavy machinery. ?Can cause constipation. You may need to take these actions to prevent or treat constipation: ?Take fsun-otq-pistyvo or prescription medicines. ?Eat foods that are high in fiber, such as beans, whole grains, and fresh fruits and vegetables. ?Limit foods that are high in fat and processed sugars, such as fried or sweet foods. General instructions Do not drive for 24 hours if you were given a sedative during your procedure. If you were sent home with a small, lubricated tube (catheter) to help keep your urethra open, follow your health care provider's instructions about how and when to use it. Drink enough fluid to keep your urine pale yellow. Return to your normal activities as told by your health care provider. Ask your health care provider what activities are safe for you. Keep all follow-up visits as told by your health care provider. This is important. Contact a health care provider if: Your urine is cloudy and smells bad. You develop new bleeding when you urinate. You pass blood clots when you urinate. You have pain that does not get better with medicine. You have a fever. You have swelling, bruising, or discoloration of your genital area. This includes the penis, scrotum, and inner thighs for men, and the outer genital organs (vulva) and inner thighs for women. Get help right away if: You develop new bleeding that does not stop. You cannot pass urine. Summary Urethral dilation is a procedure to stretch open (dilate) the urethra. Urethral dilation is usually done to treat narrowing of the urethra (urethral stricture), which can make it difficult to pass urine. Ask your health care provider about changing or stopping your regular medicines before the procedure. After the procedure, it is common to have burning pain when urinating, blood in your urine, and a need to urinate frequently. This information is not intended to replace advice given to you by your health care provider. Make sure you discuss any questions you have with your health care provider. Document Revised: 04/27/2019 Document Reviewed: 04/27/2019 [employer] Patient Education 2022 [employer]. 02/11/2023 10:43:55 Cystoscopy Cystoscopy Cystoscopy is a procedure that is used to help diagnose and sometimes treat conditions that affect the lower urinary tract. The lower urinary tract includes the bladder and the urethra. The urethra is the tube that drains urine from the bladder. Cystoscopy is done using a thin, tube-shaped instrument with a light and camera at the end (cystoscope). The cystoscope may be hard or flexible, depending on the goal of the procedure. The cystoscope is inserted through the urethra, into the bladder. Cystoscopy may be recommended if you have: Urinary tract infections that keep coming back. Blood in the urine (hematuria). An inability to control when you urinate (urinary incontinence) or an overactive bladder. Unusual cells found in a urine sample. A blockage in the urethra, such as a urinary stone. Painful urination. An abnormality in the bladder found during an intravenous pyelogram (IVP) or CT scan. Cystoscopy may also be done to remove a sample of tissue to be examined under a microscope (biopsy). Tell a health care provider about: Any allergies you have. All medicines you are taking, including vitamins, herbs, eye drops, creams, and lthj-mho-nftauqu medicines. Any problems you or family members have had with anesthetic medicines. Any blood disorders you have. Any surgeries you have had. Any medical conditions you have. Whether you are or may be . What are the risks? Generally, this is a safe procedure. However, problems may occur, including: Infection. Bleeding. Allergic reactions to medicines. Damage to other structures or organs. What happens before the procedure? Medicines Ask your health care provider about: Changing or stopping your regular medicines. This is especially important if you are taking diabetes medicines or blood thinners. Taking medicines such as aspirin and ibuprofen. These medicines can thin your blood. Do not take these medicines unless your health care provider tells you to take them. Taking bhtx-pbp-xblhamh medicines, vitamins, herbs, and supplements. Tests You may have an exam or testing, such as: X-rays of the bladder, urethra, or kidneys. CT scan of the abdomen or pelvis. Urine tests to check for signs of infection. General instructions Follow instructions from your health care provider about eating or drinking restrictions. Ask your health care provider what steps will be taken to help prevent infection. These steps may include: ?Washing skin with a germ-killing soap. ?Taking antibiotic medicine. Plan to have a responsible adult take you home from the hospital or clinic. What happens during the procedure? You will be given one or more of the following: ?A medicine to help you relax (sedative). ?A medicine to numb the area (local anesthetic). The area around the opening of your urethra will be cleaned. The cystoscope will be passed through your urethra into your bladder. Germ-free (sterile) fluid will flow through the cystoscope to fill your bladder. The fluid will stretch your bladder so that your health care provider can clearly examine your bladder olivera. Your doctor will look at the urethra and bladder. Your doctor may take a biopsy or remove stones. The cystoscope will be removed, and your bladder will be emptied. The procedure may vary among health care providers and hospitals. What can I expect after the procedure? After the procedure, it is common to have: Some soreness or pain in your abdomen and urethra. Urinary symptoms. These include: ?Mild pain or burning when you urinate. Pain should stop within a few minutes after you urinate. This may last for up to 1 week. ?A small amount of blood in your urine for several days. ?Feeling like you need to urinate but producing only a small amount of urine. Follow these instructions at home: Medicines Take gptn-qvj-lkgbzwm and prescription medicines only as told by your health care provider. If you were prescribed an antibiotic medicine, take it as told by your health care provider. Do not stop taking the antibiotic even if you start to feel better. General instructions Return to your normal activities as told by your health care provider. Ask your health care provider what activities are safe for you. If you were given a sedative during the procedure, it can affect you for several hours. Do not drive or operate machinery until your health care provider says that it is safe. Watch for any blood in your urine. If the amount of blood in your urine increases, call your health care provider. Follow instructions from your health care provider about eating or drinking restrictions. If a tissue sample was removed for testing (biopsy) during your procedure, it is up to you to get your test results. Ask your health care provider, or the department that is doing the test, when your results will be ready. Drink enough fluid to keep your urine pale yellow. Keep all follow-up visits. This is important. Contact a health care provider if: You have pain that gets worse or does not get better with medicine, especially pain when you urinate. You have trouble urinating. You have more blood in your urine. Get help right away if: You have blood clots in your urine. You have abdominal pain. You have a fever or chills. You are unable to urinate. Summary Cystoscopy is a procedure that is used to help diagnose and sometimes treat conditions that affect the lower urinary tract. Cystoscopy is done using a thin, tube-shaped instrument with a light and camera at the end. After the procedure, it is common to have some soreness or pain in your abdomen and urethra. Watch for any blood in your urine. If the amount of blood in your urine increases, call your health care provider. If you were prescribed an antibiotic medicine, take it as told by your health care provider. Do not stop taking the antibiotic even if you start to feel better. This information is not intended to replace advice given to you by your health care provider. Make sure you discuss any questions you have with your health care provider. Document Revised: 11/26/2021 Document Reviewed: 10/25/2020 [employer] Patient Education 2022 [employer]. Follow Up Care 02/05/2022 13:49:36 With:ERROL SLATER, JUDITH Sanders, URL Address: [address] [place] [address] [phone] When: Unknown Comments:garcia bai w/ cady FARLEY [facility] 02-05-2022 Hospital Discharge instructions Patient Education 02/05/2022 13:43:03 Hematuria, Adult Hematuria, Adult Hematuria is blood in the urine. Blood may be visible in the urine, or it may be identified with a test. This condition can be caused by infections of the bladder, urethra, kidney, or prostate. Other possible causes include: Kidney stones. Cancer of the urinary tract. Too much calcium in the urine. Conditions that are passed from parent to child (inherited conditions). Exercise that requires a lot of energy. Infections can usually be treated with medicine, and a kidney stone usually will pass through your urine. If neither of these is the cause of your hematuria, more tests may be needed to identify the cause of your symptoms. It is very important to tell your health care provider about any blood in your urine, even if it is painless or the blood stops without treatment. Blood in the urine, when it happens and then stops and then happens again, can be a symptom of a very serious condition, including cancer. There is no pain in the initial stages of many urinary cancers. Follow these instructions at home: Medicines Take bmgg-ozq-eqvmrrk and prescription medicines only as told by your health care provider. If you were prescribed an antibiotic medicine, take it as told by your health care provider. Do not stop taking the antibiotic even if you start to feel better. Eating and drinking Drink enough fluid to keep your urine clear or pale yellow. It is recommended that you drink 3 4 quarts (2.8 3.8 L) a day. If you have been diagnosed with an infection, it is recommended that you drink cranberry juice in addition to large amounts of water. Avoid caffeine, tea, and carbonated beverages. These tend to irritate the bladder. Avoid alcohol because it may irritate the prostate (men). General instructions If you have been diagnosed with a kidney stone, follow your health care provider's instructions about straining your urine to catch the stone. Empty your bladder often. Avoid holding urine for long periods of time. If you are female: ?After a bowel movement, wipe from front to back and use each piece of toilet paper only once. ?Empty your bladder before and after sex. Pay attention to any changes in your symptoms. Tell your health care provider about any changes or any new symptoms. It is your responsibility to get your test results. Ask your health care provider, or the department performing the test, when your results will be ready. Keep all follow-up visits as told by your health care provider. This is important. Contact a health care provider if: You develop back pain. You have a fever. You have nausea or vomiting. Your symptoms do not improve after 3 days. Your symptoms get worse. Get help right away if: You develop severe vomiting and are unable take medicine without vomiting. You develop severe pain in your back or abdomen even though you are taking medicine. You pass a large amount of blood in your urine. You pass blood clots in your urine. You feel very weak or like you might faint. You faint. Summary Hematuria is blood in the urine. It has many possible causes. It is very important that you tell your health care provider about any blood in your urine, even if it is painless or the blood stops without treatment. Take recz-xvm-qutasve and prescription medicines only as told by your health care provider. Drink enough fluid to keep your urine clear or pale yellow. This information is not intended to replace advice given to you by your health care provider. Make sure you discuss any questions you have with your health care provider. Document Released: 03/15/2006 Document Revised: 08/09/2019 Document Reviewed: 04/17/2017 [employer] Patient Education 2019 [employer]. Follow Up Care 02/03/2022 11:54:30 With:ERROL SLATERJUDITH, URL Address: [address] [place] [address] When: Unknown [facility] Evaluation + Plan note Future Appointments Appointment Date:02/05/2022 01:15:00 PM Scheduled Provider:JUDITH NORTON PA-C Location:[facility] Appointment Type:URO Office Visit [facility] Evaluation + Plan note Future Appointments Appointment Date:02/11/2023 10:00:00 AM Scheduled Provider:JUDITH NORTON PA-C Location:[facility] Appointment Type:URO Office Visit Diagnostic Tests PendingPSA Total 12/27/22 [facility] Evaluation note No assessment inform ation available [facility] Work Phone: Evaluation note Diagnosis CHB (complete heart block) (CMS/HCC) Atrioventricular block, complete Angina pectoris, unstable (CMS/HCC) Intermediate coronary syndrome Abnormal EKG Nonspecific abnormal electrocardiogram (ECG) (EKG) Mixed hyperlipidemia Type 2 diabetes mellitus with other circulatory complications (CMS/HCC) Preoperative clearance Unspecified pre-operative examination Class 1 obesity without serious comorbidity with body mass index (BMI) of 30.0 to 30.9 in adult, unspecified obesity type Fatigue, unspecified type Preoperative testing Unspecified pre-operative examination 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) documented in this encounter [facility] Work Phone: Evaluation note* Diagnosis Lymphocytosis- Primary Lymphocytosis (symptomatic) CLL (chronic lymphocytic leukemia) (HCC) Chronic lymphoid leukemia, without mention of having achieved remission documented in this encounter [facility] course Narrative No data available for this section [facility] Hospital Discharge instructions No data available for this section [facility] Progress note No data available for this section [facility] [place] reason for referral (narrative)* Consultation (Routine) - Authorized Specialty Diagnoses / Procedures Referred By Contac t Referred To Contact Cardiology Diagnoses CHB (complete heart block) ([facility]) Procedures Follow Up In Cardiology Devin Gonzalez MD [address] [facility] [address], [place] [address] [place] [address] Devin Gonzalez MD [address] [facility], [place] [address] [place] [address] Referral ID Status Reason Start Date Expiration Date V isits Requested Visits Authorized [id number] Authorized 03/04/2023 03/03/2024 1 1 * Consultation (Routine) - Authorized Specialty Diagnoses / Procedures Referred By Contac t Referred To Contact Cardiology Diagnoses CHB (complete heart block) ([facility]) Procedures Follow Up In Cardiology Devin Gonzalez MD [address] [facility] [address], [address] [address] Referral ID Status Reason Start Date Expiration Date V isits Requested Visits Authorized [id number] Authorized 03/04/2023 03/03/2024 1 1 * Imaging (Routine) - Authorized Specialty Diagnoses / Procedures Referred By Contac t Referred To Contact Radiology Diagnoses CHB (complete heart block) (CMS/HCC) Preoperative testing Procedures XR chest 2 views Devin Gonzalez MD [address] [facility] [address], [address] [address] Referral ID Status Reason Start Date Expiration Date Visits Requested Visits Authorized [id number] Authorized Perform Procedure 03/04/2023 03/03/2024 1 1 * Consultation (Routine) - Authorized Specialty Diagnoses / Procedures Referred By Contac t Referred To Contact Cardiology Diagnoses CHB (complete heart block) (CMS/HCC) Devin Gonzalez MD [address] [facility] [address], [address] [address] Referral ID Status Reason Start Date Expiration Date Visits Requested Visits Authorized [id number] Authorized Specialty Services Required 03/04/2023 03/03/2024 1 1 * Cardiovascular (Routine) - Pending Review Specialty Diagnoses / Procedures Referred By Monique lang Referred To Contact Diagnoses Preoperative clearance Procedures ECG 12 Lead Devin Gonzalez MD [address] [facility] [address], [address] [address] Referral ID Status Reason Start Date Expiration Date V isits Requested Visits Authorized [id number] Pending Review 03/04/2023 03/03/2024 1 1 [facility] Work Phone: Reason for referral (narrative)* Diagnostic Procedure Only (Routine) - Pending Review Specialty Diagnoses / Procedures Referred By Monique lang Referred To Contact MOLECULAR & FUNCTIONAL IMAGING Diagnoses Lymphocytosis CLL (chronic lymphocytic leukemia) (HCC) Procedures NM PET/CT SKULL-THIGH INITIAL PET IMAGING CT ATTENUATION SKULL BASE MID-THIGH Fabiola Elliott, MAIN LINE ASSEMBLER [address] [place] [address] [place] [address] Molecular & Functional Imaging [address] [place] [address] Referral ID Status Reason Start Date Expiration Date Visits Requested Visits Authorized [id number] Pending Review Auto-Generat ed Referral 04/06/2024 1 1 [facility] Summary Purpose Family History No Family History Records Found Relationship Condition Age at Onset Recorded Date/T noa Not Specified Congestive heart failure Unknown father Cerebrovascular accident (CVA) Unknown Diabetes mellitus Unknown sister Malignant neoplasm of breast Unknown sister Malignant neoplasm of lung Unknown Advance Directives No Advanced Directives Records Found Advance Directive Response Recorded Date/ Time Advance Directives No January 4:46pm Chief Complaint and Reason for Visit Chief Complaint Elevated White Blood Cell Count, Enlarged Lymph No Additional Source Comments (unrecognized sect ion and content) No Status Records FoundNo Status Records FoundNo Status Records FoundNo Status Records FoundNo Status Records FoundNo Status Records FoundNo Status Records Found INFORMATION SOURCE (unrecogn ized section and content) DATE CREATED AUTHOR 01/22/2022 [facility] dical Specialist DATE CREATED AUTHOR AUTHOR'S ORGANIZ ATION 02/06/2022 [facility] DATE CREATED AUTHOR AUTHOR'S ORGANIZ ATION 02/23/2023 [facility] DATE CREATED AUTHOR AUTHOR'S ORGANIZ ATION 02/24/2023 [facility] dical Specialists EPIC DATE CREATED AUTHOR AUTHOR'S ORGANIZ ATION 03/07/2023 [facility] DATE CREATED AUTHOR AUTHOR'S ORGANIZ ATION 03/10/2023 [facility] DATE CREATED AUTHOR AUTHOR'S ORGANIZ ATION 03/15/2023 [facility] Patient Care team informatio n (unrecognized section and content) Team Status: Active Member Role Status Dates Nino Valentin DO Primary Care Provider Active Team Status: Inactive Member Role Status Dates Deniz Finney DO Attending Provider Active Nino Valentin DO Primary Care Provider Active 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 Start Date End Date Nino Valentin DO [address] [facility] [address] [place] [address] PCP - General Family Medicine 03/04/23 Deniz Finney DO [address] [facility] [address] [place] [address] Referring Physician General Surgery 03/04/23 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 Finney-03/12 lym ph node removal Specialty Diagnoses / Procedures Referred By Contac t Referred To Contact Diagnoses Preoperative clearance Procedures ECG 12 Lead Devin Gonzalez MD [address] [facility], [place] [address] [place] [address] Referral ID Status Reason Start Date Expiration Date V isits Requested Visits Authorized [id number] Pending Review 03/04/2023 03/03/2024 1 1 Reason Comments Results Orders Source Comments (unrecognize d section and content) In the event this informatio n is protected by the Federal Confidentiality of Alcohol and Drug Abuse Patient Records regulations: The Federal rules restrict any use of the information to criminally investigate or prosecute any alcohol or drug abuse patient.[facility] FOR RECORDS PERTAINING TO PATIENTS WHO ARE OR HAVE BEEN ENROLLED IN A CHEMICAL DEPENDENCY/SUBSTANCEABUSE PROGRAM, SOME INFORMATION MAY BE OMITTED. This clinical summary was aggregated from multiple sources. Caution should be exercised in using it in the provision of clinical care. This summary normalizes information from multiple sources, and as a consequence, information in this document may materially change the coding, format and clinical context of patient data. In addition, data may be omitted in some cases. CLINICAL DECISIONS SHOULD BE BASED ON THE PRIMARY CLINICAL RECORDS. [employer] [email or web address] provides no warranty or guarantee of the accuracy or completeness of information in this document.
== END 2023-02-03 14:40 | disposition home or self-care (01) ==
LOC: LAB 14:42
PROVIDERS: PCP Family Medicine; Visit Provider Physician Assistant
DX: Z85.46 Personal history of malignant neoplasm of prostate (principal)
CPT/HCPCS: 36415; 84153